=== PATIENT | male | born 1945 | race Caucasian/White ===

== ENCOUNTER 2018-03-31 10:00 | Outpatient (RCR) | payer MEDICARE, BC, SELFPAY ==
--- NOTE | 2018-03-31 10:00 | PTTR_ITS ---
DATE: SUBJECTIVE: Juan states his shoulder is feeling about the same. He admits he has not been doing his exercises at home. Manual therapy: ([id number]). Patient demonstrates active shoulder flexion to 160 degrees, passively he tolerates 165 with impingement symptoms. Functional IR allows thumb to L5 passively he has full motion. ER actively is approximately 45 degrees, passively he tolerates 60 degrees with end range pain. He received cross friction massage to the greater tuberosity and posterior capsule as well as scapular framing techniques and deep tissue mobilization throughout the infraspinatus. This is followed by grade 3 inferior and AP GH joint mobilizations and sustained stretching through all planes where he eventually tolerates full PROM. Therapeutic procedures ([id number]). * X HEP review: * x Provided skilled manual cues to facilitate proper muscle recruitment and/ or movement pattern: Patient instructed in 4 way theraband resisted shoulder exercises and provided with red band for home completion. He was encouraged to improve compliance and hang the band in a room that he frequents so he can be reminded to complete these throughout the course of a day. He is provided with hand outs for home instruction. Direct treatment time: 30 mins Total treatment time: 30 mins SS/dl
--- NOTE | 2018-04-12 13:48 | NT_ITS ---
Juan did not show up for today's scheduled appointment. SS/gc
== END 2018-04-16 23:59 | disposition home or self-care (01) ==
LOC: PT 10:00
PROVIDERS: PCP Emergency Medicine; Referring Provider Emergency Medicine; Visit Provider Emergency Medicine
DX: M65.812 Other synovitis and tenosynovitis, left shoulder (principal); R42 Dizziness and giddiness
CPT/HCPCS: 97110; 97140

== ENCOUNTER 2019-02-15 19:25 | Outpatient (REF) | payer MEDICARE, BC, SELFPAY ==
[2019-02-15 19:52] LABS: Bilirubin Negative (Negative); Blood Moderate (Negative); Clarity Sl Cloudy (Clear); Glucose 250 mg/dL (Negative); Ketones Negative (Negative); Leukocyte Esterase Moderate (Negative); Nitrite Positive (Negative); Specific Gravity 1.025 (1.005-1.025); Urobilinogen 0.2 EU/dL (Up TO 0.2); pH 5.5 (5-8)
[2019-02-15 20:05] LABS: Bacteria Many HPF (Negative); C & S Indicated? Yes; Casts Negative LPF (Negative); Crystals Negative HPF (Negative); Epithelial Cells Negative HPF (Negative); Mucus Negative (Negative); RBC >50 (0-2); WBC >50 HPF (0-5)
== END 2019-02-15 19:45 ==
LOC: LBN 19:25
PROVIDERS: PCP Emergency Medicine; Visit Provider Family Medicine
DX: N39.0 Urinary tract infection, site not specified (principal)
CPT/HCPCS: 87077; 81003; 81015; 87086; 87186

== ENCOUNTER 2019-02-28 20:05 | Outpatient (REF) | payer MEDICARE, BC, SELFPAY | END 2019-02-28 20:25 | LOC: LBN 20:05 | PROVIDERS: PCP Emergency Medicine; Visit Provider Family Medicine | DX: N39.0 Urinary tract infection, site not specified (principal) | CPT/HCPCS: 87086 ==

== ENCOUNTER 2019-03-16 11:34 | Outpatient (CLI) | payer MEDICARE, BC, SELFPAY ==
[2019-03-17 10:32] LABS: PSA, Screening 1.9 ng/ml (0-6.5)
== END 2019-03-16 11:54 ==
PROVIDERS: PCP Emergency Medicine; Visit Provider Emergency Medicine
DX: N13.8 Other obstructive and reflux uropathy (principal); N40.1 Benign prostatic hyperplasia with lower urinary tract symptoms; Z12.5 Encounter for screening for malignant neoplasm of prostate
CPT/HCPCS: 36415; 84153

== ENCOUNTER → 2019-04-26 14:44 | Outpatient (CLI) | payer MEDICARE, BC, SELFPAY ==
--- NOTE | 2019-04-26 12:15 | DI.RAD_ITS ---
SYMPTOM/DIAGNOSIS: RIGHT WRIST PAIN M25.539 RIGHT WRIST: 04/26 Three views were obtained. Bony alignment appears within normal limits. There is a marginal osteophyte of the ulna at the radial ulnar joint. No other bony abnormality seen.
[2019-04-26 13:20] LABS: Uric Acid 1.2 mg/dL (3.5-7.2)
[2019-04-26 13:43] LABS: ESR 26 mm/hr (1-20)
[2019-04-27 11:06] LABS: Lyme Ab w Rflx to Lyme Confirm Negative
== END ==
PROVIDERS: PCP Emergency Medicine; Visit Provider Emergency Medicine
DX: M25.531 Pain in right wrist (principal); M25.731 Osteophyte, right wrist
CPT/HCPCS: 36415; 85652; 73110; 84550; 86618

== ENCOUNTER → 2019-05-03 09:40 | Outpatient (BNVA) | payer MEDICARE, BC, SELFPAY | PROVIDERS: PCP Emergency Medicine; Referring Provider Emergency Medicine; Visit Provider Orthopaedic Surgery | DX: M25.531 Pain in right wrist (principal); E11.9 Type 2 diabetes mellitus without complications | CPT/HCPCS: 29075; 99201; 99213; Q4010 ==

== ENCOUNTER 2019-05-16 13:53 | Outpatient (REF) | payer MEDICARE, BC, SELFPAY ==
[2019-05-16 16:27] LABS: Abs Immature Grans 0.01 k/cumm (0.0-0.09); Absolute Basophil Count 0.01 k/cumm (0.0-0.2); Absolute Eosinophil Count 0.17 k/cumm (0.0-0.7); Absolute Lymphocyte Count 0.88 k/cumm (1.2-3.4); Absolute Monocyte Count 0.53 k/cumm (0.11-0.7); Absolute Neutrophil Count 3.77 k/cumm (1.2-6.7); Basophils % 0.2; Eosinophils % 3.2; HCT 35.3 % (40.0-50.0); HGB 11.7 g/dL (13.5-17.5); Immature Grans % 0.2; Lymphocytes % 16.4; Mean Corp. HGB Concentration 33.1 g/dL (32.0-36.0); Mean Corpuscular Hemoglobin 32.3 pg (27.0-33.0); Mean Corpuscular Volume 97.5 fL (80-95); Mean Platelet Volume 9.8 fL (8.0-11.0); Monocytes % 9.9; Neutrophils % 70.1; Platelet Count 427 x1000/uL (130-400); RBC 3.62 m/cumm (4.50-6.00); RBC Distribution Width 12.1 % (11.8-14.1); White Blood Cell Count 5.37 k/cumm (4.4-10.8)
[2019-05-16 17:10] LABS: ALT 40 U/L (16-63); AST 16 U/L (15-37); Alkaline Phosphatase 89 U/L (46-116); Anion Gap 11.4 mmol/L (3-11); BUN 22 mg/dL (7-18); Bilirubin, Total 0.2 mg/dL (0.2-1.0); C-Reactive Protein 4.43 mg/dL (0.0-0.3); CO2 25.6 mmol/L (21.0-32.0); CREATININE 1.36 mg/dL (0.70-1.30); Calcium 8.7 mg/dL (8.5-10.1); Chloride 100 mmol/L (98-107); Estimated GFR 51.37 (mL/min/1.73m2); Glucose 245 mg/dL (70-100); Potassium 4.4 mmol/L (3.5-5.1); Sodium 137 mmol/L (136-145); Total Protein 7.2 g/dL (6.4-8.2)
== END 2019-05-16 14:13 ==
LOC: LBN 13:53
PROVIDERS: PCP Emergency Medicine; Visit Provider Internal Medicine Infectious Disease
DX: E11.9 Type 2 diabetes mellitus without complications (principal); R78.81 Bacteremia; M06.041 Rheumatoid arthritis without rheumatoid factor, right hand
CPT/HCPCS: 80053; 85025; 86140

== ENCOUNTER 2019-05-23 14:33 | Outpatient (REF) | payer MEDICARE, BC, SELFPAY ==
[2019-05-23 14:29] LABS: Absolute Basophil Count 0.02 k/cumm (0.0-0.2); Absolute Eosinophil Count 0.15 k/cumm (0.0-0.7); Absolute Lymphocyte Count 0.82 k/cumm (1.2-3.4); Basophils % 0.4; Eosinophils % 2.9; HCT 33.2 % (40.0-50.0); HGB 11.2 g/dL (13.5-17.5); Lymphocytes % 16.1; Mean Corp. HGB Concentration 33.7 g/dL (32.0-36.0); Mean Corpuscular Hemoglobin 32.4 pg (27.0-33.0); Mean Platelet Volume 9.4 fL (8.0-11.0); Monocytes % 11.8; Neutrophils % 68.8; Platelet Count 285 x1000/uL (130-400); RBC 3.46 m/cumm (4.50-6.00); White Blood Cell Count 5.09 k/cumm (4.4-10.8)
[2019-05-23 15:07] LABS: ALT 25 U/L (16-63); AST 15 U/L (15-37); Albumin 3.1 g/dL (3.4-5.0); Alkaline Phosphatase 75 U/L (46-116); Anion Gap 10.2 mmol/L (3-11); BUN 15 mg/dL (7-18); Bilirubin, Total 0.3 mg/dL (0.2-1.0); C-Reactive Protein 2.05 mg/dL (0.0-0.3); CO2 26.8 mmol/L (21.0-32.0); CREATININE 1.26 mg/dL (0.70-1.30); Calcium 8.7 mg/dL (8.5-10.1); Chloride 101 mmol/L (98-107); Glucose 275 mg/dL (70-100); Potassium 4.4 mmol/L (3.5-5.1); Sodium 138 mmol/L (136-145); Total Protein 6.9 g/dL (6.4-8.2)
== END 2019-05-23 14:53 ==
LOC: LBN 14:33
PROVIDERS: PCP Emergency Medicine; Visit Provider Internal Medicine Infectious Disease
DX: R78.81 Bacteremia (principal); M00.041 Staphylococcal arthritis, right hand; E11.9 Type 2 diabetes mellitus without complications
CPT/HCPCS: 80053; 85025; 86140

== ENCOUNTER 2019-05-30 15:29 | Outpatient (REF) | payer MEDICARE, BC, SELFPAY ==
[2019-05-30 16:44] LABS: ALT 18 U/L (16-63); AST 13 U/L (15-37); Albumin 3.3 g/dL (3.4-5.0); Alkaline Phosphatase 68 U/L (46-116); BUN 17 mg/dL (7-18); Bilirubin, Total 0.3 mg/dL (0.2-1.0); C-Reactive Protein 0.65 mg/dL (0.0-0.3); CREATININE 1.19 mg/dL (0.70-1.30); Calcium 8.1 mg/dL (8.5-10.1); Chloride 103 mmol/L (98-107); Estimated GFR 59.92 (mL/min/1.73m2); Glucose 240 mg/dL (70-100); Potassium 4.2 mmol/L (3.5-5.1); Sodium 138 mmol/L (136-145); Total Protein 6.8 g/dL (6.4-8.2)
[2019-05-30 16:45] LABS: Abs Immature Grans 0.01 k/cumm (0.0-0.09); Absolute Basophil Count 0.01 k/cumm (0.0-0.2); Absolute Eosinophil Count 0.16 k/cumm (0.0-0.7); Absolute Lymphocyte Count 0.73 k/cumm (1.2-3.4); Absolute Monocyte Count 0.57 k/cumm (0.11-0.7); Absolute Neutrophil Count 1.97 k/cumm (1.2-6.7); Basophils % 0.3; Eosinophils % 4.6; HCT 34.4 % (40.0-50.0); HGB 11.5 g/dL (13.5-17.5); Immature Grans % 0.3; Lymphocytes % 21.2; Mean Corp. HGB Concentration 33.4 g/dL (32.0-36.0); Mean Corpuscular Hemoglobin 32.2 pg (27.0-33.0); Mean Corpuscular Volume 96.4 fL (80-95); Mean Platelet Volume 9.8 fL (8.0-11.0); Monocytes % 16.5; Neutrophils % 57.1; Platelet Count 205 x1000/uL (130-400); RBC 3.57 m/cumm (4.50-6.00); RBC Distribution Width 12.6 % (11.8-14.1); White Blood Cell Count 3.45 k/cumm (4.4-10.8)
== END 2019-05-30 15:49 ==
LOC: LBN 15:29
PROVIDERS: PCP Emergency Medicine; Visit Provider Emergency Medicine
DX: M00.041 Staphylococcal arthritis, right hand (principal); R78.81 Bacteremia; Z45.2 Encounter for adjustment and management of vascular access device
CPT/HCPCS: 80053; 85025; 86140

== ENCOUNTER 2020-03-07 16:43 | Inpatient (IN) | payer MEDICARE, BC, SELFPAY ==
[2020-03-07] VITALS (47 sets, daily range): BP systolic 108–159; BP diastolic 52–76; PULSE 43–66; RESP 10–18; TEMP 36.6–36.7; O2SAT 94–98
--- NOTE | 2020-03-07 16:45 | RT.EKG_ITS ---
APPROVED REPORT Exam: Resting ECG Patient Location: E HR:61 bpm ECG Measurements Heart Rate 61 AXIS WA 261 P -5 QRSd 88 QRS 48 QT 419 T 15 QTc 422 <Conclusion> Sinus rhythm...normal P axis, V-rate 61, no st elevation. 1st deg av block
--- NOTE | 2020-03-07 16:45 | DI.CT_ITS ---
EXAM: CT HEAD - STROKE PROTOCOL CLINICAL HISTORY: expressive aphasia. TECHNIQUE: Imaging Protocol: Axial computed tomography images with coronal and sagittal reformatted images were created and reviewed COMPARISON: CT HEAD NECK FACIAL WO from 11/07/2017 FINDINGS: Ventricles and Extra axial spaces: Normal in size and morphology for the patient's age. Hemorrhage: None. Cerebral parenchyma: There is an area of decreased attenuation involving the left temporal lobe not p resent on the prior examination. There are areas of decreased attenuation in the white matter most c onsistent with microvascular ischemic disease. Midline shift: None. Brainstem/Cerebellum: Normal. Calvarium: Normal. Visualized Paranasal sinuses/Mastoids: There is a small mucous retention cyst or polyp in the left ma xillary sinus. The remaining visualized paranasal sinuses are clear. The mastoid air cells are well pneumatized. Soft Tissues: Unremarkable. IMPRESSION: 1. Area of decreased attenuation in the left temporal lobe. This may represent volume averaging thro ugh an adjacent sign. An acute infarct cannot be excluded. If there is continued concern, an MRI sh ould be considered for further evaluation. 2. No other acute intracranial process. RADIATION DOSE DELIVERED: Total DLP DATA REPOSITORY: All CT scans at this facility are submitted to the National Radiology Data Registry (NRDR) Dose Index Registry (DIR) with the [employer] (ACR). RADIATION OPTIMIZATION: All CT scans at this facility use at least one of these dose optimization te chniques: automated exposure control; mA and/or kV adjustment per patient size (includes targeted exa ms where dose is matched to clinical indication); or iterative reconstruction.
--- NOTE | 2020-03-07 16:57 | ED.GENADUL_ITS ---
Discharge Plan Disposition Patient Disposition: [facility] INPATIENT Condition: Stable Discharge Details Chief Complaint: CVA/TIA Clinical Impression: Expressive aphasia Primary Care Provider: Christopher Suarez ED Provider: Robles Zapien Home Meds and New Rx's Prescriptions: No Action glipizide 2.5 mg tablet extended release 24hr 2.5 mg PO DAILY Qty: 90 RF: 3 (DME) OneTouch Verio test strips Strip See Rx Instructions .ROUTE .MEDSUPPLY Qty: 100 RF: 6 losartan [Cozaar] 50 mg tablet 50 mg PO DAILY Qty: 90 RF: 3 rosuvastatin [Crestor] 10 mg tablet 20 mg PO DAILY Qty: 30 RF: 12 (DME) OneTouch Ultra Blue Test Strip Strip See Rx Instructions .ROUTE .MEDSUPPLY Qty: 100 RF: 4 prednisone 20 mg tablet 60 mg PO DAILY Qty: 9 RF: 0 epinephrine 0.3 mg/0.3 mL auto-injector 0.3 ml SC ONCE PRN (Reason: anaphylaxis) Qty: 2 RF: 0 aspirin [Aspir-81] 81 MG tablet,delayed release (DR/EC) 81 mg PO DAILY Qty: 100 RF: 3 nitroglycerin 0.4 MG tablet, sublingual 0.3 mg Sublingual PRN RF: 0 metoprolol succinate 25 MG tablet extended release 24 hr 25 mg PO DAILY RF: 0 ONETOUCH ULTRA TEST STRIPS 1 EACH strip 1 ea Miscellaneous DAILY Qty: 90 RF: 3 (DME) lancets [OneTouch UltraSoft Lancets] misc 1 ea Miscellaneous DAILY Qty: 90 RF: 3 magnesium chloride [Mag 64] 64 mg tablet,delayed release (DR/EC) 64 mg PO DAILY PRNRF: 0 Medical Decision Making 75-year-old male with a history of diabetes, coronary artery disease, presents from home with his who states that at 1030 this morning patient began to develop intermittent expressive a aphasia. He felt that this was likely due to some mild hypoglycemia with a glucose of 80 at home this is happened in the past. He was able to sleep and then awoke and had persistent expressive aphasia, the patient's spoke with their family doctor and he recommended evaluation in the emergency department. Patient arrives in no significant distress. His blood pressure is 152/61 initially, repeated 131/60. Pulse 63, afebrile 36.6 with 96% sat on room air. His exam does not show focal motor deficits but he does have expressive aphasia. He is able to follow two-step command. Referred for stat noncontrast CT scan of the head with no acute intracranial findings. See formal report. Chest x-ray without evidence of acute cardiopulmonary process. Laboratories with unremarkable CBC chemistries with BUN 29, creatinine 1.4 and indeterminate troponin I of 0.17. The troponin I was repeated at 0.16. Do not feel the patient is a primary cardiac process. May be effects of the neuro- cardiac axis. Case discussed with Dr. Garcia and patient to be admitted. Lab Data Lab results reviewed: Yes I reviewed the patient's lab results. Labs: Laboratory Results - last 24 hr 03/07/20 03/07/20 16:56 16:56 WBC 7.98 RBC 4.08 L Hgb 13.7 Hct 39.0 L MCV 95.6 H MCH 33.6 H MCHC 35.1 RDW 12.7 Plt Count 235 MPV 9.4 Immature Gran % 0.4 Neutrophils % 59.3 Lymphocytes % 24.4 Monocytes % 14.2 Eosinophils % 1.4 Basophils % 0.3 Absolute Neutrophils 4.74 Absolute Lymphocytes 1.95 Absolute Monocytes 1.13 H Absolute Eosinophils 0.11 Absolute Basophils 0.02 Sodium 140 Potassium 3.4 L Chloride 106 Carbon Dioxide 24.2 Anion Gap 9.8 BUN 29 H Creatinine 1.41 H Estimated GFR/1.73 m2 49.13 Glucose 123 H Calcium 8.5 Magnesium 2.1 Total Bilirubin 0.3 AST 13 L ALT 20 Alkaline Phosphatase 45 L Troponin I 0.17 H* Total Protein 7.0 Albumin 3.5 HPI General Mode of arrival: ambulatory . Date/Time Provider Initiated Documentation: 03/07/20 16:43 . Limitations to Documentation: no limitations . Information obtained by: patient . History of Present Illness 75 year old M presents to the emergency department with the chief complaint of Expressive aphasia that began at 10:30 AM, described as moderate, and is localized to the head and mouth. Patient started experiencing this hour(s) and it has been intermittent. No relieving factors improve symptom(s), No exacerbating factors reported . Patient notes denies shortness of breath, syncope and weakness. Patient did receive the following treatments prior to arrival, none Related Data Home Medications Medication Instructions Recorded Confirmed aspirin [Aspir-81] 81 mg PO DAILY #100 tab-cap 01/20/17 03/07/20 metoprolol succinate 25 mg PO DAILY tab-cap 02/03/17 03/07/20 nitroglycerin 0.3 mg SUBLINGUAL PRN 02/03/17 03/07/20 magnesium chloride 64 mg 64 mg PO DAILY PRN 02/15/19 03/07/20 (magnesium chloride) tablet,delayed release lancets #90 ea 02/16/19 03/07/20 blood sugar diagnostic #100 each 05/20/19 03/07/20 losartan 50 mg tablet 50 mg PO DAILY #90 tab-cap 05/20/19 03/07/20 rosuvastatin 10 mg tablet 20 mg PO DAILY #30 tab-cap 05/20/19 03/07/20 blood sugar diagnostic #100 each 05/24/19 03/07/20 glipizide 2.5 mg tablet, extended 2.5 mg PO DAILY #90 tab 12/20/19 03/07/20 release 24 hr epinephrine 0.3 mg/0.3 mL 0.3 ml SC ONCE PRN #2 each 03/05/20 03/07/20 injection, auto-injector prednisone 20 mg tablet 60 mg PO DAILY #9 tab 03/05/20 03/07/20 Previous Rx's Medication Instructions Recorded lancets #90 ea 02/16/19 blood sugar diagnostic #100 each 05/20/19 losartan 50 mg tablet 50 mg PO DAILY #90 tab-cap 05/20/19 rosuvastatin 10 mg tablet 20 mg PO DAILY #30 tab-cap 05/20/19 blood sugar diagnostic #100 each 05/24/19 glipizide 2.5 mg tablet, extended 2.5 mg PO DAILY #90 tab 12/20/19 release 24 hr epinephrine 0.3 mg/0.3 mL 0.3 ml SC ONCE PRN #2 each 03/05/20 injection, auto-injector prednisone 20 mg tablet 60 mg PO DAILY #9 tab 03/05/20 Allergies Allergy/AdvReac Type Severity Reaction Status Date / Time atorvastatin [From Lipitor] AdvReac Severe sweating, Verified 03/07/20 16:55 sick to stomach metformin AdvReac Mild DIARRHEA Verified 03/07/20 16:55 tape AdvReac Mild Skin Rash Uncoded 03/07/20 16:55 General Stated Complaint: CVA/TIA DIANNE: 2 Review of Systems Narrative: Recently placed on prednisone for insect bite. No recent illness. No known sick contacts or recent travel history. 8 systems reviewed and otherwise negative. 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 [facility] [place]. 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 Social History Smoking/Tobacco Use Status: Former Tobacco Use Alcohol Intake: current Alcohol Intake frequency: a few times a week Alcohol type: beer Drug use: Never Substance use type: does not use Caregiver/Support person: Yes Household members: spouse Communication Needs: None Do you need help understanding health information?: Never Pets and animals: Yes Pets and animals: cat(s), dog(s) and horse(s) Sexually active: Yes Do you think of yourself as: straight/heterosexual Current gender identity: male What is your relationship status?: How often do you talk on the phone with friends or family?: once per week How often do you get together with friends or relatives?: once per week How often do you attend congregational or cheondoism services?: 1-3 times per year Do you belong to any clubs or organized social groups?: no Panel score (0-1 are the most socially isolated patients): 1 What type of physical activity do you participate in: none Tiffanie/Holiness: No preference Special tiffanie needs: No Seatbelt use: always Drive intox or ride w/intox security patrol driver: No Do you feel safe at home: Yes Do you feel safe in your relationship?: Yes Exam Narrative Exam Narrative: GEN: awake, alert. Pleasant, well groomed, interactive. HEAD: Normocephalic, atraumatic ENT: Mucous membranes moist, oropharynx unremarkable, External ear exam unremarkable EYES: PERRL, EOMI, mild left supraorbital edema NECK: Full ROM, no KYLAH, no menigismus CHEST/RESP: Nontender, clear to auscultation bilateral, no wheeze/rhonchi/rales CARDIOVASCULAR: RRR, no murmur, rub wilson. 2+ Rad pulse bilateral ABDOMEN: Soft, nontender, no mass. +Bowel sounds EXT: Full ROM, no edema, no rash Neuro: Grossly normal neurologic exam, conversant, interactive. Cranial nerves II through XII intact. No facial droop. +Expressive aphasia. Follows two-step command. No motor weakness. Psych: Course Vital Signs Vital signs: Vital Signs Temperature 36.6 C 03/07/20 16:47 Pulse 63 03/07/20 16:47 Respiratory Rate 16 03/07/20 16:47 Blood Pressure 152/61 H 03/07/20 16:47 Pulse Oximetry 96 03/07/20 16:47 Temperature 36.6 C 03/07/20 16:47 Temperature Source Tympanic 03/07/20 16:47 Pulse 63 03/07/20 16:47 Respiratory Rate 16 03/07/20 16:47 Respiratory Effort Non-Labored 03/07/20 16:53 Blood Pressure 152/61 H 03/07/20 16:47 Blood Pressure Position Sitting 03/07/20 16:47 Pulse Oximetry 96 03/07/20 16:47 Oxygen Delivery Method Room Air 03/07/20 16:47 Oxygen Flow Rate 0 03/07/20 16:47
[2020-03-07] MEDS: Normal Saline 1,000 ML 125 ML IV (17:00)
[2020-03-07 17:05] LABS: Abs Immature Grans 0.03 k/cumm (0.0-0.09); Absolute Basophil Count 0.02 k/cumm (0.0-0.2); Absolute Eosinophil Count 0.11 k/cumm (0.0-0.7); Absolute Lymphocyte Count 1.95 k/cumm (1.2-3.4); Absolute Monocyte Count 1.13 k/cumm (0.11-0.7); Absolute Neutrophil Count 4.74 k/cumm (1.2-6.7); Basophils % 0.3; Eosinophils % 1.4; HGB 13.7 g/dL (13.5-17.5); Immature Grans % 0.4 %; Lymphocytes % 24.4; Mean Corp. HGB Concentration 35.1 g/dL (32.0-36.0); Mean Corpuscular Hemoglobin 33.6 pg (27.0-33.0); Mean Corpuscular Volume 95.6 fL (80-95); Mean Platelet Volume 9.4 fL (8.0-11.0); Monocytes % 14.2; Neutrophils % 59.3; Platelet Count 235 x1000/uL (130-400); RBC 4.08 m/cumm (4.50-6.00); RBC Distribution Width 12.7 % (11.8-14.1); White Blood Cell Count 7.98 k/cumm (4.4-10.8)
--- NOTE | 2020-03-07 17:10 | DI.RAD_ITS ---
EXAM: XR CHEST 2V PA LATERAL CLINICAL HISTORY: expressive aphasia TECHNIQUE: 2D digital imaging was performed. COMPARISON: No exams were available for comparison FINDINGS: MEDIASTINUM: Normal. HEART: Normal. PULMONARY VASCULATURE: Normal. LUNGS: Clear. PLEURAL SPACE: No pleural effusion or pneumothorax. BONE:Normal. OTHER FINDINGS:Normal. IMPRESSION: No acute pulmonary findings. DATA REPOSITORY: RADIATION DOSE DELIVERED:
--- NOTE | 2020-03-07 17:17 | DI.VRAD_ITS ---
PROCEDURE INFORMATION: Exam: XR Chest, 2 Views Exam date and time: 03/07/2020 5:07 PM Age: 75 years old Clinical indication: Other: Expresive aphasia TECHNIQUE: Imaging protocol: XR of the chest Views: 2 views. COMPARISON: CR LEFT RIBS TO INCLUDE CXR 11/07/2017 2:10 PM FINDINGS: Lungs: Clear lungs. Pleural space: No pneumothorax. No sizeable effusion. Heart/Mediastinum: Cardiomediastinal silhouette is within normal limits. Bones/joints: No acute displaced fracture or dislocation. IMPRESSION: No acute cardiopulmonary process. Dictated and Authenticated by: Demarco Ferraro MD. Ordering:SHANTE Arboleda MD
--- NOTE | 2020-03-07 17:17 | DI.VRAD_ITS ---
PROCEDURE INFORMATION: Exam: CT Head Without Contrast Exam date and time: 03/07/2020 5:02 PM Age: 75 years old Clinical indication: Speech disturbance; Aphasia TECHNIQUE: Imaging protocol: Computed tomography of the head without contrast. Other technique: STROKE PROTOCOL was implemented. COMPARISON: CT HEAD WITHOUT CONTRAST 10/10/2013 5:14 PM FINDINGS: Brain: There is a focal area of low attenuation within the left temporal lobe on image 19 series 2 favored to represent volume averaging of adjacent sulci. Mild cerebral volume loss Ventricles: Ventricles and sulci are otherwise symmetric in appearance. Bones/joints: Unremarkable. Sinuses: Small mucous retention cyst left maxillary sinus. Mastoid air cells: Unremarkable. Soft tissues: Unremarkable. IMPRESSION: 1. No definite acute intracranial process. 2. Focal area of low attenuation within the left temporal lobe favored to represent volume averaging of adjacent sulci. MRI could be obtained to exclude acute infarct however. ASSESSMENT: ASPECTS ([place] Stroke Program Early CT Score) is 10. Dictated and Authenticated by: Demarco Ferraro MD. Ordering:SHANTE Arboleda MD
[2020-03-07 17:20] LABS: ALT 20 U/L (16-63); AST 13 U/L (15-37); Albumin 3.5 g/dL (3.4-5.0); Alkaline Phosphatase 45 U/L (46-116); Anion Gap 9.8 mmol/L (3-11); BUN 29 mg/dL (7-18); Bilirubin, Total 0.3 mg/dL (0.2-1.0); CO2 24.2 mmol/L (21.0-32.0); CREATININE 1.41 mg/dL (0.70-1.30); Calcium 8.5 mg/dL (8.5-10.1); Chloride 106 mmol/L (98-107); Estimated GFR 49.13 (mL/min/1.73m2); Glucose 123 mg/dL (74-106); Magnesium 2.1 mg/dL (1.8-2.4); Potassium 3.4 mmol/L (3.5-5.1); Sodium 140 mmol/L (136-145)
[2020-03-07 17:21] LABS: Troponin I 0.17 ng/mL (<0.06)
[2020-03-07] MEDS: Aspirin 325 MG TAB PO (17:46)
[2020-03-07 19:15] LABS: Troponin I 0.16 ng/mL (<0.06)
--- NOTE | 2020-03-07 19:30 | HPE_ITS ---
Date of service: 03/07/20 Time of Service: 19:30 Assessment and Plan Assessment and plan (1) Stroke: Status: Chronic Assessment and plan: Stroke, pure anterior aphasia, fairly mild, perhaps improving. Will continue ASA (note has has been noncompliant), statin. Will check MRI in AM. Will monitor Tely and check carotid U/S. Troponin: doubtful significance. Will check third in AM HTN: will allow mild permissive DM usual meds Pulse steroids(for bee sting over eye): three day course, has essentially completed. History of Present Illness History of Present Illness Chief Complaint: aphasia Narrative: 75 male wikth DM, HTN, HLD, CAD -- comes in with one day of difficulty word finding; time onset nine hr ago. NO HAQUE or lateralizing symptoms. In ER w/u of note for neg h ead CT. Given ASA 325. thinks he might be getting slightly better (as example states that he misnamed a pen earlier in day, but during my exam gets it correct) In ER tely has shown all sinus rhythm Note incidental troponin 0.17; #2 0.16. No CP, and EKG WNL except 1' AVB Review of Systems All systems reviewed & are unremarkable except as noted in HPI and below PFSH Medical History Carpal tunnel syndrome (Acute) Coronary artery disease of [place] artery of [place] heart with stable angina pectoris (Acute 03/17/17) pos. stress [facility] [place]. Treating medically. 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 Social History Smoking/Tobacco Use Status: Former Tobacco Use Alcohol Intake: current Alcohol Intake frequency: a few times a week Alcohol type: beer Drug use: Never Substance use type: does not use Caregiver/Support person: Yes Household members: spouse Communication Needs: None Do you need help understanding health information?: Never Pets and animals: Yes Pets and animals: cat(s), dog(s) and horse(s) Sexually active: Yes Do you think of yourself as: straight/heterosexual Current gender identity: male What is your relationship status?: How often do you talk on the phone with friends or family?: once per week How often do you get together with friends or relatives?: once per week How often do you attend confucianism or pentecostalism services?: 1-3 times per year Do you belong to any clubs or organized social groups?: no Panel score (0-1 are the most socially isolated patients): 1 What type of physical activity do you participate in: none Tiffanie/Mu-Ism: No preference Special tiffanie needs: No Seatbelt use: always Drive intox or ride w/intox driver service technician: No Do you feel safe at home: Yes Do you feel safe in your relationship?: Yes Meds Home Medications and Allergies Home Medications Medication Instructions Recorded Confirmed Type aspirin [Aspir-81] 81 mg PO DAILY #100 tab-cap 01/20/17 03/07/20 History metoprolol succinate 25 mg PO DAILY tab-cap 02/03/17 03/07/20 History nitroglycerin 0.3 mg SUBLINGUAL PRN 02/03/17 03/07/20 History Onetouch Ultra Test Strips 1 ea MISCELLANEOUS DAILY #90 strip 01/05/18 03/07/20 Clinic magnesium chloride 64 mg 64 mg PO DAILY PRN 02/15/19 03/07/20 History (magnesium chloride) tablet,delayed release lancets #90 ea 02/16/19 03/07/20 Rx blood sugar diagnostic #100 each 05/20/19 03/07/20 Rx losartan 50 mg tablet 50 mg PO DAILY #90 tab-cap 05/20/19 03/07/20 Rx rosuvastatin 10 mg tablet 20 mg PO DAILY #30 tab-cap 05/20/19 03/07/20 Rx blood sugar diagnostic #100 each 05/24/19 03/07/20 Rx glipizide 2.5 mg tablet, extended 2.5 mg PO DAILY #90 tab 12/20/19 03/07/20 Rx release 24 hr epinephrine 0.3 mg/0.3 mL 0.3 ml SC ONCE PRN #2 each 03/05/20 03/07/20 Rx injection, auto-injector prednisone 20 mg tablet 60 mg PO DAILY #9 tab 03/05/20 03/07/20 Rx Allergies Allergy/AdvReac Type Severity Reaction Status Date / Time atorvastatin [From Lipitor] AdvReac Severe sweating, Verified 03/07/20 16:55 sick to stomach metformin AdvReac Mild DIARRHEA Verified 03/07/20 16:55 tape AdvReac Mild Skin Rash Uncoded 03/07/20 16:55 Exam Narrative Exam Narrative: 149/59, 52, 376./6, 14, 97%b RA. HEENT mild left periorbital puffiness; neck supple, w/o bruit; lungs clear; heart RRR w/o MRG; abdomen soft NT; extremities w/o edema, pulse 2+/=; neuro Ox3, language shows somewhat delayed word production with occ errors in word choice and naming; CN intact, motor 5/5, toes downgoing Results Labs Result diagrams: 03/07/20 16:56 03/07/20 16:56 Labs: Laboratory Results - last 24 hr 03/07/20 03/07/20 03/07/20 16:56 16:56 18:45 WBC 7.98 RBC 4.08 L Hgb 13.7 Hct 39.0 L MCV 95.6 H MCH 33.6 H MCHC 35.1 RDW 12.7 Plt Count 235 MPV 9.4 Immature Gran % 0.4 Neutrophils % 59.3 Lymphocytes % 24.4 Monocytes % 14.2 Eosinophils % 1.4 Basophils % 0.3 Absolute Neutrophils 4.74 Absolute Lymphocytes 1.95 Absolute Monocytes 1.13 H Absolute Eosinophils 0.11 Absolute Basophils 0.02 Sodium 140 Potassium 3.4 L Chloride 106 Carbon Dioxide 24.2 Anion Gap 9.8 BUN 29 H Creatinine 1.41 H Estimated GFR/1.73 m2 49.13 Glucose 123 H Calcium 8.5 Magnesium 2.1 Total Bilirubin 0.3 AST 13 L ALT 20 Alkaline Phosphatase 45 L Troponin I 0.17 H* 0.16 H* Total Protein 7.0 Albumin 3.5 Last Vital Signs Temp 36.6 C 03/07/20 16:47 Pulse 53 L 03/07/20 19:16 Resp 14 03/07/20 19:20 BP 149/59 H 03/07/20 19:16 Pulse Ox 97 03/07/20 19:20 COVID-19 Screening Have you,or household,traveled outside [place] in last 14 days?: No Had IN PERSON contact w/suspected or confirmed C-19 person: No
[2020-03-07] MEDS: ROSUVASTATIN 20 MG TAB (22:37)
[2020-03-07] MEDS: Rosuvastatin 10 MG TAB 20 MG PO (22:41)
[2020-03-08] VITALS (27 sets, daily range): BP systolic 93–173; BP diastolic 36–90; PULSE 42–62; RESP 11–21; TEMP 36.6–37.1; O2SAT 94–97
--- NOTE | 2020-03-08 | RT.EKG_ITS ---
APPROVED REPORT Exam: Resting ECG Patient Location: I HR:52 bpm ECG Measurements Heart Rate 52 AXIS AR 273 P 37 QRSd 84 QRS 50 QT 442 T 31 QTc 410 <Conclusion> Sinus bradycardia...rate< 60 Prolonged AR interval...AR >220, V-rate 50- 90
--- NOTE | 2020-03-08 | DI.MRI_ITS ---
EXAM: MR BRAIN WO/W CLINICAL HISTORY: global aphasia, h/o brain mets TECHNIQUE: Multiplanar multisequence MRI of the brain was performed. CONTRAST MATERIAL: IV Contrast: 15 ML of Dotarem contrast administered. COMPARISON: CT CT HEAD - STROKE PROTOCOL from 03/07/2020 FINDINGS: VENTRICLES AND EXTRA AXIAL SPACES: Normal in size and morphology for the patient's age. HEMORRHAGE: None. CEREBRAL PARENCHYMA: There are areas of restricted diffusion in the left temporal lobe and left parie shashi lobe corresponding to the left middle cerebral artery territory. No space-occupying lesion ident ified. Scattered foci of T2 hyperintensity are seen in the white matter consistent with small vessel ischemic disease. MIDLINE SHIFT: None. BRAINSTEM/CEREBELLUM: Normal. CALVARIUM: Normal. ENHANCEMENT: No suspicious enhancement identified. VISUALIZED PARANASAL SINUSES/MASTOIDS: Mild mucosal thickening in the maxillary sinuses bilaterally. Otherwise visualized paranasal sinuses are clear. [place]: Normal flow void. [place]: Unremarkable. OTHER FINDINGS: IMPRESSION: Findings consistent with an acute left MCA distribution infarct. DATA REPOSITORY:
--- NOTE | 2020-03-08 | DI.CT_ITS ---
EXAM: CT BRAIN NECK CTA CLINICAL HISTORY: L MCA territory CVA. TECHNIQUE: Imaging Protocol: Axial CT angiography was performed with multi-slice acquisition and mu lti-planar and/or 3D reconstructions. CONTRAST MATERIAL: Intravenous: Omnipaque 350 Contrast volume:85 mL COMPARISON: CT CT HEAD - STROKE PROTOCOL from 03/07/2020 MR MR ANGIO BRAIN WO from 03/08/2020 MR MR BRAIN WO/W from 03/08/2020 MR MR ANGIO BRAIN WO from 03/08/2020 FINDINGS: CT Head W/O: Ventricles and Extra axial spaces: Normal in size and morphology for the patient's age. Hemorrhage: None. Cerebral parenchyma: There are areas of decreased attenuation again seen in the left parietal and lef t temporal lobe consistent with the patient's now subacute left MCA distribution infarct Midline shift: None. Brainstem/Cerebellum: Normal. Calvarium: Normal. Visualized Paranasal sinuses/Mastoids: Clear. Soft Tissues: Unremarkable. CTA Brain W: Internal Carotid Arteries: Petrous: Normal. Cavernous: Atherosclerosis with moderate narrowing of the anterior genu component of the cavernous po rtion of the left internal carotid artery. Cerebral: Normal. Anterior Cerebral Arteries: Right: No aneurysm, occlusion or significant stenosis. Left: No aneurysm or occlusion. Moderate stenosis of the A1 segment. Middle Cerebral Arteries: Right: No aneurysm, occlusion or significant stenosis. Left: No aneurysm or occlusion. There is a moderate stenosis of a short segment of the proximal asp ect of a left posterior M2 branch. (Series 13, image 26). Posterior cerebral Arteries: Right: No aneurysm, occlusion or significant stenosis. Left: No aneurysm, occlusion or significant stenosis. Vertebral Arteries: Right: No aneurysm, occlusion or significant stenosis. Small caliber throughout. Left: No aneurysm, occlusion or significant stenosis. Basilar Artery: No aneurysm, occlusion or significant stenosis. CTA Neck W: Common Carotid: Right: No aneurysm, occlusion or significant stenosis. Mild atherosclerosis. Left: No aneurysm, occlusion or significant stenosis. Mild atherosclerosis. External Carotid: Right: No aneurysm, occlusion or significant stenosis. Mild atherosclerosis. Left: No aneurysm, occlusion or significant stenosis. Mild atherosclerosis. Internal Carotid: Right: No aneurysm, occlusion or dissection. Approximately 65 percent stenosis of the proximal inte rnal carotid artery. Proximal atherosclerosis. Left: No aneurysm, occlusion or dissection. Severe stenosis (greater than 90 percent) at the origin of the left internal carotid artery. Atherosclerosis. Vertebral Artery: Right: There is a long segment of severe stenosis of the extracranial right vertebral artery. The m id and superior right vertebral artery is small caliber. Left: Severe stenosis of the origin of the left vertebral artery. Atherosclerosis at its origin. Subclavian arteries: Moderate stenosis at the origin of the right subclavian artery. Atherosclerosis . Lung Apices: Normal. Bones: No acute abnormality. Soft Tissues: Normal. IMPRESSION: 1. Moderate stenoses again noted in the cavernous portion of the left internal carotid artery and a p osterior left M2 branch of the left MCA. 2. Findings again show a now subacute left MCA distribution infarct. 3. Severe stenosis (greater than 90 percent) at the origin of the left internal carotid artery. 4. Severe stenosis at the origins of both the left and right vertebral arteries. 5. Approximately 65 percent stenosis of the proximal right internal carotid artery. 6. Moderate stenosis of the origin of the right subclavian artery. 7. Please see the above discussion for complete details. RADIATION DOSE DELIVERED: Total DLP DATA REPOSITORY: All CT scans at this facility are submitted to the National Radiology Data Registry (NRDR) Dose Index Registry (DIR) with the [employer] (ACR). RADIATION OPTIMIZATION: All CT scans at this facility use at least one of these dose optimization te chniques: automated exposure control; mA and/or kV adjustment per patient size (includes targeted exa ms where dose is matched to clinical indication); or iterative reconstruction.
--- NOTE | 2020-03-08 | DI.US_ITS ---
APPROVED REPORT EXAM: Comprehensive 2D, Doppler, and color-flow Echocardiogram Patient Location: [facility] Product Safety Professional: Eve Ruth RDCS (AE) Indications: CVA, Elevated troponin Other Information Study Quality: Adequate Conclusion Left Ventricle : The left ventricle is normal size. The left ventricular systolic function is normal. The left ventricular ejection fraction is within the normal range. There is normal left ventricular wall thickness. There is normal LV segmental wall motion. The left ventricular diastolic function is normal. LVEF is 60%. Right Ventricle : The right ventricle is normal size. The right ventricular systolic function is norm al. The RVSP is 20.7 mmHg. Atria : Left atrium is mildly dilated. The right atrium size is normal. Aortic Valve : Aortic valve is thickened but has adequate excursion. Aortic valve is trileaflet. No h emodynamically significant valvular aortic stenosis. Mild to moderate aortic regurgitation. Mitral Valve : Mild mitral annular calcification. No evidence of mitral valve stenosis. Mild mitral r egurgitation. Great Vessels : The aortic root is normal in size. The ascending aorta is mildly dilated. Aortic arc h is not well visualized. IVC is normal in size and collapses >50% with inspiration. There is no prior stdy available for comparison. Wall motion Left Ventricle The left ventricle is normal size. The left ventricular systolic function is normal. The left ventric ular ejection fraction is within the normal range. There is normal left ventricular wall thickness. T here is normal LV segmental wall motion. The left ventricular diastolic function is normal. There is no ventricular septal defect visualized. LVEF is 60%. Right Ventricle The right ventricle is normal size. The right ventricular systolic function is normal. The RVSP is 20 .7 mmHg. Atria Left atrium is mildly dilated. The right atrium size is normal. The interatrial septum is intact with no evidence for an atrial septal defect. Aortic Valve Aortic valve is thickened but has adequate excursion. Aortic valve is trileaflet. No hemodynamically significant valvular aortic stenosis. Mild to moderate aortic regurgitation. Mitral Valve Mild mitral annular calcification. No evidence of mitral valve stenosis. Mild mitral regurgitation. Tricuspid Valve The tricuspid valve is normal in structure. There is no tricuspid valve stenosis. Trace to mild tricu spid regurgitation. Pulmonic Valve The pulmonary valve is normal in structure. There is no pulmonic valvular stenosis. Trace pulmonic re gurgitation. Great Vessels The aortic root is normal in size. The ascending aorta is mildly dilated. Aortic arch is not well vis ualized. IVC is normal in size and collapses >50% with inspiration. Pericardium There is no pericardial effusion. 2D Dimensions IVSD d PLAX 1.03 cm M: 0.6-1.2 LV Vol A2C d MOD 109.9 mL LVPW d PLAX 1.04 cm M: 0.6 - 1.2 LV Vol A4C d MOD 100.8 mL LVID d PLAX 4.52 cm M: 4.2 - 5.8 LA vol/ BSA A2C s A-L 35.4 mL/m2 LVDs 3.00 cm M: 2.5 - 4.0 LA vol/ BSA A4C s A-L 22.7 mL/m2 Ao Root d 2.88 cm M: 3.1 - 3.7 LA Vol/ BSA Biplane s A-L 29.4 mL/m2 RA Area A4C 17.80 cm2 LA Area A4C s MOD 17.62 cm2 RA Vol/ BSA A4C s A-L 27.0 mL/m2 LA Area A2C s MOD 21.24 cm2 Ao Asc Diam d 3.57 cm M: 2.6 - 3.4 LV EF A4C MOD 59.5 % LV EF Teichholz 62.3 % LV EF A2C MOD 59.3 % LVEF (Colin's) 57.96 % M: 52 - 72 LV EF Biplane MOD 58.0 % LV Volume 79.51 mL M: 62 - 150 SV 60.96 mL LV Volume Index 40.77 mL/m2 M: 34 - 74 SV Index 31.21 mL/m2 LV Vol Biplane MOD 105.2 mL FS 33.40 % M-Mode TAPSE 2.50 cm (M/F) >1.7 LV Diastology MV E' medial 0.073 (>0.07 m/s) E/A Ratio 1.0 LV E/e MED 12.45 (<14) MV E Vmax 0.91 (0.4-1.3 m/s) MV E' lateral 0.108 (>0.1 m/s) MV A Vmax 0.95 (0.4-1.3 m/s) LV E/e LAT 8.50 (<14) MV E/A Ratio 0.94 MV E/E' medial 12.47 MV E/E' lateral 8.51 Aortic Valve LVOT Area 3.11 cm2 AoV Area Vmax 2.14 cm2 LVOT Vmax 1.36 m/s AoV Area/ BSA (Vmax) 1.10 cm2/m2 LVOT Mean Edgar. 0.89 m/s LA NENA Mean Edgar. 2.02 cm2 LVOT Peak Grad 7.4 mmHg LA NENA Mean Edgar. Index 1.04 cm2/m2 LVOT Mean Grad 3.7 mmHg AR DT 2418 msec LVOT VTI 0.320 m AR PHT 701 msec LVOT Diam s 1.95 cm AoV Vmax 1.98 m/s Velocity Ratio 0.68 AoV Mean Edgar. 1.37 m/s AoV Peak Grad 15.7 mmHg LVOT SV 99.68 mL AoV Mean Grad 8.4 mmHg AoV VTI 0.460 m AoV Area VTI 2.17 cm2 AoV Area/ BSA (VTI) 1.11 cm/m2 Mitral Valve MV DT 188 (160-240 msec) MV PHT 54 msec MV Area PHT 4.04 cm2 Pulmonary Valve PV Vmax 1.26 (0.5-1.5 m/s) RVOT Peak Gr. 2.43 mmHg PV Peak Grad 6.3 mmHg RVOT Mean Gr. 1.20 mmHg PV Mean Grad 2.9 mmHg RVOT VTI 0.193 m PV VTI 0.235 m RVOT Vmax 0.78 m/s Tricuspid Valve TR Peak Grad 17.6 mmHg TR Vmax 2.10 m/s RA Pressure 3.00 mmHg RVSP (TR) 20.7 mmHg
--- NOTE | 2020-03-08 | DI.US_ITS ---
EXAM: US CAROTID CLINICAL HISTORY: stroke. TECHNIQUE: Ultrasound carotids performed using grayscale, color-flow, and spectral Doppler imaging. COMPARISON: No exams were available for comparison FINDINGS: RIGHT CAROTID ARTERY: Plaque: Moderate calcific plaque is seen in the common carotid artery, the carotid bulb and the exter nal carotid artery. Velocity elevation: Please see below. LEFT CAROTID ARTERY: Plaque: Moderate calcific plaque is seen in the common carotid artery. Marked calcific plaque is see n in the carotid bulb and the proximal internal carotid artery. Velocity elevation: Please see below. VERTEBRAL ARTERIES: Antegrade flow. Measurements: R Bulb: 130.5cm/s PS / 37.9cm/s ED R CCA: 109.3cm/s PS / 24.4cm/s ED R ECA: 155.5cm/s PS / 10.2cm/s ED R ICA Prox: 238.6cm/s PS /69.4cm/s ED R ICA Mid: 219.8cm/s PS / 36.2cm/s ED R ICA Distal: 199.6cm/s PS /41.9cm/s ED R Vert: 69.4cm/s PS / 17.4cm/s ED R SVR: 2.18 R DVR: 2.84 L Bulb: 449.5cm/s PS /29.7cm/s ED L CCA: 58.9cm/s PS / 12.6cm/s ED L ECA: 216.6cm/s PS /31.6cm/s ED L ICA Prox:444.2cm/s PS / 43.2cm/s ED L ICA Mid: 56.7cm/sPS / 8.8cm/s ED L ICA Distal: 29.2cm/s PS / 7.7cm/s ED L Vert: 45.7cm/s PS / 14.3cm/s ED L SVR: 7.54 L DVR: 3.43 IMPRESSION: 1. Marked velocity elevations in the left carotid artery system resulting in near occlusion of the le ft internal carotid artery. 2. Velocity elevations in the right internal carotid artery resulting in greater than 70 percent inte rnal carotid artery stenosis. 3. Significant atherosclerotic disease in the neck, left greater than right. Criteria for Carotid Stenosis: Normal: ICA PSV <125 cm/s no plaque or intimal thickening is visible. <50% stenosis: ICA PSV <125 cm/s and plaque or intimal thickening is visible. 50-69% stenosis: ICA PSV is 125-250 cm/s and plaque is visible. >70% stenosis to near occlusion: ICA PSV >250 cm/s with visible plaque and luminal narrowing. DATA REPOSITORY:
--- NOTE | 2020-03-08 | DI.MRI_ITS ---
CLINICAL HISTORY: aphasia. TECHNIQUE: Multiplanar multisequence MRA of the brain was performed. COMPARISON: None. FINDINGS: Carotid Arteries: No aneurysm or occlusion. There is marked narrowing of the anterior genu of the ca vernous portion of the left internal carotid artery. Anterior Cerebral Arteries: Right: No aneurysm, occlusion or significant stenosis. Left: No aneurysm or occlusion. There is moderately severe narrowing of the left A1 segment. The r emainder of the left anterior cerebral artery is unremarkable. Middle Cerebral Arteries: Right: No aneurysm, occlusion or significant stenosis. Left: No aneurysm or occlusion. There is moderate narrowing of an M2 segment. Posterior Cerebral Arteries: Right: No aneurysm, occlusion or significant stenosis. Left: No aneurysm, occlusion or significant stenosis. Vertebral Arteries: Right: No aneurysm, occlusion or significant stenosis. Left: No aneurysm, occlusion or significant stenosis. Basilar Artery: No aneurysm, occlusion or significant stenosis. IMPRESSION: 1. Moderate narrowing of a left M2 segment of the left MCA. 2. Moderately severe narrowing of the A1 segment of the left MANNY. 3. Moderate narrowing of the anterior genu of the cavernous portion of the left ICA. DATA REPOSITORY:
[2020-03-08 07:17] LABS: Troponin I 0.09 ng/mL (<0.06)
--- NOTE | 2020-03-08 08:26 | W.PM.PROGNOT ---
Date of Service Date of service: 03/08/20 Time of Service: :22 Assessment and Plan Assessment and plan (1) Acute ischemic left MCA stroke: Status: Acute Assessment and plan: In setting of apparent carotid stenosis on US/MRA. Will obtain CTA. Initiated on asa (patient was not taking it at the time of the event). Continue statin. May require transfer to a tertiary care facility for a vascular intervention. Await neurology consult and a speech therapy eval. (2) Carotid stenosis: Status: Acute Assessment and plan: As above - obtain CTA head/neck (3) Expressive aphasia: Status: Acute Assessment and plan: Speech therapy consulted (4) Elevated troponin: Status: Acute Assessment and plan: Await echo. EKG without obvious acute ischemia. Possibly type 2 NSTEMI - will need ischemic workup, possibly as outpatient. No evidence of Afib as of right now. Continue asa/statin. Consider cardiology consult. (5) DVT prophylaxis: Status: Acute Assessment and plan: start sc heparin (6) Discharge planning issues: Status: Acute Assessment and plan: Full code May require transfer to a tertiary care facility depending on results of CTA Subjective Subjective Interval history since last seen: Mr Mcwilliams is able to have a conversation with me, but he is having word finding difficulties with me. He denies dizziness, headache, chest pain, shortness of breath, numbness/tingling. He states he was having difficulty saying (making words) what he was reading on the board Overnight, receptive aphasia (?also expressive). This seems to be coming and going. Nursing felt he was unable to answer questions because he wasn't understaning. Waxing and waning. ?LLE weaker per nursing. SBP 90-120's overnight. Exam Narrative Exam Narrative: General: pleasant male who appears younger than his stated age; A&Ox3 Neuro: A&Ox3, CN II - XII intact, sensory intact, 5/5 strength throughout on my exam, does have expressive aphasia; I did not see him having receptive aphasia while I was in the room HEENT: EOMI, MMM Heart: RRR, no m/r/g Lungs: CTAB Abdomen: soft, nontender, nondistended Extremities: no e/c/c BLE's Objective Objective Clinical Data: Abnormal lab results 03/07/20 03/07/20 03/07/20 Range/Units 16:56 16:56 18:45 RBC 4.08 L (4.50-6.00) m/cumm Hct 39.0 L (40.0-50.0) % MCV 95.6 H (80-95) fL MCH 33.6 H (27.0-33.0) pg Absolute Monocytes 1.13 H (0.11-0.7) k/cumm Potassium 3.4 L (3.5-5.1) mmol/L BUN 29 H (7-18) mg/dL Creatinine 1.41 H (0.70-1.30) mg/dL Glucose 123 H (74-106) mg/dL AST 13 L (15-37) U/L Alkaline Phosphatase 45 L (46-116) U/L Troponin I 0.17 H* 0.16 H* (<0.06) ng/mL 03/08/20 Range/Units 06:08 RBC (4.50-6.00) m/cumm Hct (40.0-50.0) % MCV (80-95) fL MCH (27.0-33.0) pg Absolute Monocytes (0.11-0.7) k/cumm Potassium (3.5-5.1) mmol/L BUN (7-18) mg/dL Creatinine (0.70-1.30) mg/dL Glucose (74-106) mg/dL AST (15-37) U/L Alkaline Phosphatase (46-116) U/L Troponin I 0.09 H* (<0.06) ng/mL Vital Signs Temperature 36.6 C 03/08/20 03:10 Temperature Source Temporal Artery Scan 03/08/20 03:10 Pulse 46 L 03/08/20 04:01 Pulse 49 L 03/08/20 04:01 Respiratory Rate 13 03/08/20 04:01 Respiratory Effort Non-Labored 03/08/20 03:10 Respiratory Depth Normal 03/08/20 03:10 Respiratory Pattern Normal 03/08/20 03:10 Blood Pressure 123/53 L 03/08/20 04:01 Blood Pressure Mean 69 03/08/20 04:01 Blood Pressure Position Supine 03/08/20 03:10 Pulse Oximetry 96 03/08/20 03:10 Oxygen Delivery Method Room Air 03/08/20 03:10 Oxygen Flow Rate 0 03/08/20 03:10 Pain Level 0 03/08/20 03:10 Intake & Output 03/07/20 03/07/20 03/08/20 11:59 23:59 11:59 Intake Total 60 / 60 0 / 0 Output Total 100 / 100 Balance 60 / 60 -100 / -100 Weight 76.2 kg Intake: IV 0 / 0 Oral 60 / 60 Output: Urine 100 / 100 Other: Urine Color Yellow Urine Appearance Clear Urine Odor Normal Voiding Methods Urinal Laboratory Results WBC 7.98 k/cumm (4.4-10.8) 03/07/20 16:56 RBC 4.08 m/cumm (4.50-6.00) L 03/07/20 16:56 Hgb 13.7 g/dL (13.5-17.5) 03/07/20 16:56 Hct 39.0 % (40.0-50.0) L 03/07/20 16:56 MCV 95.6 fL (80-95) H 03/07/20 16:56 MCH 33.6 pg (27.0-33.0) H 03/07/20 16:56 MCHC 35.1 g/dL (32.0-36.0) 03/07/20 16:56 RDW 12.7 % (11.8-14.1) 03/07/20 16:56 Plt Count 235 x1000/uL (130-400) 03/07/20 16:56 MPV 9.4 fL (8.0-11.0) 03/07/20 16:56 Immature Gran % 0.4 % 03/07/20 16:56 Neutrophils % 59.3 03/07/20 16:56 Lymphocytes % 24.4 03/07/20 16:56 Monocytes % 14.2 03/07/20 16:56 Eosinophils % 1.4 03/07/20 16:56 Basophils % 0.3 03/07/20 16:56 Absolute Neutrophils 4.74 k/cumm (1.2-6.7) 03/07/20 16:56 Absolute Lymphocytes 1.95 k/cumm (1.2-3.4) 03/07/20 16:56 Absolute Monocytes 1.13 k/cumm (0.11-0.7) H 03/07/20 16:56 Absolute Eosinophils 0.11 k/cumm (0.0-0.7) 03/07/20 16:56 Absolute Basophils 0.02 k/cumm (0.0-0.2) 03/07/20 16:56 Sodium 140 mmol/L (136-145) 03/07/20 16:56 Potassium 3.4 mmol/L (3.5-5.1) L 03/07/20 16:56 Chloride 106 mmol/L (98-107) 03/07/20 16:56 Carbon Dioxide 24.2 mmol/L (21.0-32.0) 03/07/20 16:56 Anion Gap 9.8 mmol/L (3-11) 03/07/20 16:56 BUN 29 mg/dL (7-18) H 03/07/20 16:56 Creatinine 1.41 mg/dL (0.70-1.30) H 03/07/20 16:56 Estimated GFR/1.73 m2 49.13 (mL/min/1.73m2) 03/07/20 16:56 Glucose 123 mg/dL (74-106) H 03/07/20 16:56 Calcium 8.5 mg/dL (8.5-10.1) 03/07/20 16:56 Magnesium 2.1 mg/dL (1.8-2.4) 03/07/20 16:56 Total Bilirubin 0.3 mg/dL (0.2-1.0) 03/07/20 16:56 AST 13 U/L (15-37) L 03/07/20 16:56 ALT 20 U/L (16-63) 03/07/20 16:56 Alkaline Phosphatase 45 U/L (46-116) L 03/07/20 16:56 Troponin I 0.09 ng/mL (<0.06) H* 03/08/20 06:08 Total Protein 7.0 g/dL (6.4-8.2) 03/07/20 16:56 Albumin 3.5 g/dL (3.4-5.0) 03/07/20 16:56 US carotid: 1. Marked velocity elevations in the left carotid artery system resulting in near occlusion of the left internal carotid artery. 2. Velocity elevations in the right internal carotid artery resulting in greater than 70 percent internal carotid artery stenosis. 3. Significant atherosclerotic disease in the neck, left greater than right. MRI brain: Findings consistent with an acute left MCA distribution infarct. MRA brain: 1. Moderate narrowing of a left M2 segment of the left MCA. 2. Moderately severe narrowing of the A1 segment of the left MANNY. 3. Moderate narrowing of the anterior genu of the cavernous portion of the left ICA. Echo: ordered, pending
[2020-03-08 08:28] LABS: COVID-19 RT-PCR UVMMC Result Negative (Negative)
[2020-03-08 09:01] LABS: Anion Gap 9.5 mmol/L (3-11); BUN 27 mg/dL (7-18); CO2 21.5 mmol/L (21.0-32.0); CREATININE 1.27 mg/dL (0.70-1.30); Calcium 7.9 mg/dL (8.5-10.1); Calculated LDL 48 mg/dL (<100); Chloride 111 mmol/L (98-107); Cholesterol 88 mg/dL (<200); Estimated GFR 55.44 (mL/min/1.73m2); Glucose 139 mg/dL (74-106); HDL Cholesterol 22 mg/dL (40-60); Magnesium 1.9 mg/dL (1.8-2.4); Potassium 3.6 mmol/L (3.5-5.1); Sodium 142 mmol/L (136-145); Triglyceride 91 mg/dL (<150); Vitamin B12 343 pg/mL (193-986)
[2020-03-08 09:03] LABS: Hemoglobin A1C 6.8 % (3.8-5.6)
--- NOTE | 2020-03-08 09:09 | INITIAL_ITS ---
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 PREVIOUS FUNCTIONAL STATUS/SOCIAL/FAMILY SUPPORTS:: Juan resides with his , Ele in [place], [place]. He is independent with ADLs in the community. CURRENT FUNCTIONAL STATUS:: Juan was sitting up in bed, engaged in a speech consult. CM continues to follow. ADVANCE DIRECTIVES:: None on file at [facility]. Has patient been provided with info about the portal/API?: Yes Did the patient sign up for the portal?: Yes (Previously) CODE STATUS:: Full Code INSURANCE COVERAGE / FINANCIAL ISSUES:: BC/BS. Medicare CURRENT HOME/COMMUNITY SERVICES/EQUIPMENT:: No current services or equipment. PRIMARY CARE PHYSICIAN:: Christopher Suarez DO POTENTIAL DISCHARGE NEEDS:: Follow up appointment with PCP. PATIENT/FAMILY EDUCATION NEEDS:: Review discharge instructions, discuss Ask Me Three. ANTICIPATED BARRIERS TO DISCHARGE:: None identified. TRANSPORTATION:: Via private vehicle with his . PLAN:: Juan will return home when ready per MD, he will follow up with his PCP and plan of care as prescribed. He will transport via private vehicle with his .
[2020-03-08] MEDS: Normal Saline 1,000 ML 125 ML IV ×2 (09:18→18:30)
[2020-03-08] MEDS: Aspirin 325 MG TAB PO (09:49)
--- NOTE | 2020-03-08 11:50 | W.INDIABCONS ---
Date of service: 03/08/20 Time of Service: 11:50 Diabetes Inpatient Consult DESCRIPTION/ASSESSMENT: 75 year old male admitted with CVA, expressive aphasia. 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 BMI wnl. Recent A1C (03/08/20) 6.8% indicating adequate blood sugar control in last 90 days. Following regular diet with regular texture, tolerating well per nursing. Met with Juan today, speech improving but continues to have deficeits, unclear of comprehension. Provided him with written materials on diabetes and diet management and contact information if needs diet follow up s/p discharge. At this time, blood sugars in adequate control. INTERVENTION: Provided written material on diabetes and diet management, contact info for follow up in outpatient setting. PLAN: continue current diet plan, Pt to follow up with outpatient nutrition counseling if needed. Time Spent in Nutritional Counseling and Treatment: 10 min spent face to face
[2020-03-08] MEDS: Normal Saline Flush 10 ML SYR IVP ×2 (12:28→19:43)
[2020-03-08] MEDS: Gadoterate meglumine 20 ML VIAL 15 ML IVP (12:29)
[2020-03-08] MEDS: Insulin Aspart 300 UNITS/3 ML PEN SC ×2 (12:55→18:07)
[2020-03-08] MEDS: Heparin 5,000 UNITS/ML VIAL 5000 UNITS SC (14:40)
--- NOTE | 2020-03-08 15:06 | PHA.REVIEW ---
Pharmacy Admission Review - Admission Clinical Review (Last Reviewed 03/07/20 @ 19:36 by Elia Garcia MD) Discharge planning issues (Acute) DVT prophylaxis (Acute) Elevated troponin (Acute) Carotid stenosis (Acute) Acute ischemic left MCA stroke (Acute) Expressive aphasia (Acute) atorvastatin [From Lipitor] Adverse Reaction (Severe, Verified 03/07/20 16:55) sweating, sick to stomach metformin Adverse Reaction (Mild, Verified 03/07/20 16:55) DIARRHEA tape Adverse Reaction (Mild, Uncoded 03/07/20 16:55) Skin Rash Height 5 ft 11 in Weight 76.2 kg - Renal Dosing Renal Dosing: BUN 27 mg/dL (7-18) H 03/08/20 06:08 Creatinine 1.27 mg/dL (0.70-1.30) 03/08/20 06:08 Medications needing adjustments: Reviewed (Crcl ~54 mL/min current meds okay) - Anticoagulation Anticoagulation: Hgb 13.7 g/dL (13.5-17.5) 03/07/20 16:56 Hct 39.0 % (40.0-50.0) L 03/07/20 16:56 Plt Count 235 x1000/uL (130-400) 03/07/20 16:56 Creatinine 1.27 mg/dL (0.70-1.30) 03/08/20 06:08 DVT Prohphylaxis: Reviewed Medications: Heparin Therapeutic Anticoagulation: N/A - Opiate Usage Evaluate Pain Scale/Pains Meds: N/A - Relevant Labs Sodium 142 mmol/L (136-145) 03/08/20 06:08 Potassium 3.6 mmol/L (3.5-5.1) 03/08/20 06:08 Chloride 111 mmol/L (98-107) H 03/08/20 06:08 Magnesium 1.9 mg/dL (1.8-2.4) 03/08/20 06:08 Electrolytes, C-Reactive P, ESR: Reviewed - DM Control DM Control: Glucose 139 mg/dL (74-106) H 03/08/20 06:08 Hemoglobin A1c 6.8 % (3.8-5.6) H 03/08/20 06:08 Finger Stick Blood Glucose 150 Finger Stick Blood Glucose 150 Finger Stick Blood Glucose 150 Finger Stick Blood Glucose 133 Insulin Dosing: Reviewed (sliding scale aspart ordered) - Heart Failure/MA Heart Failure/MA: Troponin I 0.09 ng/mL (<0.06) H* 03/08/20 06:08 EF%, ZONIA's, B-Blockers, Diuretics: Reviewed - BP Control BP Control: Blood Pressure [Left Arm] 154/64 Blood Pressure 154/64 Blood Pressure 137/60 Blood Pressure 134/65 Blood Pressure 117/56 Blood Pressure 123/53 Blood Pressure 94/52 If elevated: Reviewed (BP meds discontinued to allow for permissive hypertension per H&P) - Qtc Review If Elevated: N/A - IV to PO Switch IV Medications: N/A - Home Meds Home Med List reviewed: Reviewed Relevent Home Meds Not ordered & why?: epinephrine(PRN), glipizide(has sliding scale aspart), losartan, metoprolol (permissive hypertenstion), magnesium chloride, nitroglycerin, prednisone - Current meds Current Medication Order Review: Intervened (fixed melatonin order (PRN in frequency and schedule), discontinued DI meds, discontinued duplicate orders) - Comments Comments/Follow Ups: Watch BP, BG and for med changes.
--- NOTE | 2020-03-08 15:35 | W.SPEECHEVAL ---
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 Pt is currently tolerating full PO diet of Level 7-regular solids and level 0-thin liquids without complications; ELECTRICIAN DECK referred for evaluation of expressive/receptive aphasia at this time; pt's communication abilities have 'waxed and waned' per nursing and documentation review, secondary to medical status and overall cognitive fatigue, complicated by hearing deficits (deaf in left ear) and ability to visualize speaker's mouth. Ele (Crystal) present during second half of evaluation today and provided with overview/outcomes from evaluation today. Subjective: Patient awake/alert and oriented to self and place during evaluation, does not endorse pain. Patient does demonstrate self-awareness of deficits during evaluation today; demonstrates increased frustration with spoken expression/lexical retrieval, reading multisyllable words and/or longer phrases aloud, and more complex linguistic comprehension tasks during formal assessments [KPT, QAB]. Assessment: Oral Motor Examination: Grossly WFL Dentition: WFL Oral Hygiene: WFL Objective: KPT [Kitchen Picture Test] partially administered (not completed due to initial patient frustration levels) Part A/Expressive Language: 11/24 Part B/Practical Judgment: (not completed; patient able to identify 1/3 safety issues in picture before becoming too overwhelmed with task) QAB [Quick Aphasia Battery] administered (patient willing to participate in full administration of QAB with counseling for purpose, education re: aphasia, and discussion of patient interests, ie playing guitar/singing, his , Crystal, and fishing) QAB Totals Word Comprehension: Sentence Comprehension: Word Findin/24 Speech Motor Programmin/8 Repetition: Readin/24 Automatic speech: numerals 1-20, days of week, common phrases/responses - intact, months of year - not tested Following Verbal commands: Simple - 2/2 accuracy; Increased linguistic complexity - 1/3 accuracy Grammatical Construction and Aphasic Connected Speech features: MLU 3-4 words/reduced length and complexity of utterances; reduced speech rate, agrammatism (omission of words and morphemes/occasional telegraphic speech); occasional garbled syntax and innappropriate juxtaposition of words and phrases; marked anomia;mild semantic paraphasias, marked phonemic paraphasias, and frequent self-corrections/false starts, and occasional retraced sequences. Patient does independently demonstrate use of effective circumlocution; also benefits from cues for use of gestures, phonemic cues, and use of repetition, increased processing time. Impressions: Patient currently demonstrates expressive/receptive nonfluent aphasia as characterized by difficulties with auditory comprehension [understanding complex speech], written comprehension [full understanding of written text; reading longer/more complex words/phrases], verbal expression [spoken language, lexical retrieval] and some evidence of verbal apraxia with more complex, multisyllable verbal repetition tasks (inconsistent). Written expression not assessed today due to time/setting constraints. Patient demonstrates intact sense of humor and pragmatic capabilities, with willingness to participate in further skilled treatment with ELECTRICIAN DECK in current and/or discharge setting. Communication Recommendations: Comprehension: Encourage patient to look at speaker's mouth whenever visible; consider use of masks with clear plastic window if available. Reduce rate of speech and complexity of words when talking to patient. Rephrase sentences and/or concepts if comprehension is unclear. Provide visual aids/resources whenever possible. Offer simplified written text whenever possible for patient to review with caregivers/staff. Utilize Yes/No questions to determine understanding after new concepts are presented. Expression: Allow patient additional time to express self and/or multiple attempts to find word(s) For word finding difficulties during conversation: Encourage patient to describe what things look/feel like, where they may be located, how they function, and/or use related words (synonyms) Provide patient with visual aids, and assistance with reading text aloud, encouraging spoken repetition. Encourage use of relevant gestures to enhance expression Diet Textures: Level 7-regular solids and level 0-thin liquids, medications whole with thins and/or puree as tolerated Patient motivations/goals: To know / understand overall medical prognosis. To return to singing/playing guitar again. To speak and read normally. Retirement Goals: To be determined pending further diagnostic treatment session to further inform patient-centered treatment plan of care. Short Term Goals: To be determined pending further diagnostic treatment session to further inform patient centered treatment plan of care. Patient recommended for continued ELECTRICIAN DECK treatment 3-5x/week while in acute care to address communication deficits secondary to expressive/receptive aphasia with caregiver/staff training as needed, assess full aphasic profile with further standardized aphasia battery; recommend referral for continued ELECTRICIAN DECK evaluation & treatment in post-acute setting. Patient/caregiver/staff education provided, including written information for review and low tech AAC device on tableside as needed. ELECTRICIAN DECK Service Code: 64947
[2020-03-08] MEDS: Omnipaque 350 MG/ML 100 ML BTL IJ (16:16)
--- NOTE | 2020-03-08 16:42 | NCONE_ITS ---
Date of service: 03/08/20 Time of Service: 16:42 Assessment and Plan Assessment and plan (1) Acute ischemic left MCA stroke: Status: Acute (2) Left carotid stenosis: Status: Acute Assessment and plan: Mr. Mcwilliams is a 75 year-old man admitted with acute onset global aphasia secondary to acute ischemic stroke found to have severe L ICA stenosis (has mild-moderate R ICA stenosis as well). TTE still pending but stroke due to the stenosis. Start heparin drip. Continue permissive hypertension but avoid very high numbers. Continue antiplatelets and transfer for intervention/vascular. The R ICA is not symptomatic and does not need intervention at this time. He should follow-up in neurology clinic in 4-6 weeks. History of Present Illness History of Present Illness Chief Complaint: stroke Narrative: Handedness: right. HPI: Mr. 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 Yesterday am around 1030am he developed acute onset expressive aphasia with difficulty getting his words out and using the wrong words. His symptoms waxed and waned. He took a nap and when symptoms were still present in the afternoon presented to the [facility] ER at the prompting of his PCP around 5pm. He had no associated weakness, numbness, or vision complaints. In the ER he had a BP of 152/61 with a Cr of 1.41 (baseline ~1.2). His initial troponin was 0.17 -> 0.16 -> 0.09. He was not a candidate for tPA as he was outside of the time window. There was also some thought that he was improving. Of note, he is normally on aspirin, but ran out 2 weeks ago and thus has not been on aspirin since. He was given ASA in the ER and admitted for further work-up as below. He has had slight improvement in speech per family but remains globally aphasic in my opinion. Work-up: -CTH: No acute findings. Mild atrophy and chronic vascular changes. I reviewed these images personally. -MRI brain w/o: Acute infarcts in the left temporal lobe and left parietal lobe. I reviewed these images personally. -MRA brain w/o: suspicious for severe L ICA stenosis due to low flow throughout the left hemisphere. Diffuse atherosclerosis in anterior and posterior circulati ons. I reviewed these images personally. -CUS: L ICA near occlusion with >70% R ICA stenosis. -CTA head and neck: severe(>90%) L ICA stenosis just after the bifurcation with mild R ICA stenosis (rads read as ~65%). Distal R vertebral occlusion in my opinion read as severe stenosis by radiology. Severe stenosis of distal L vertebral artery and mild-moderate stenosis of subclavian artery. I reviewed these images personally. 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 stress [facility]ing medically. 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 Social History Smoking/Tobacco Use Status: Former Tobacco Use Alcohol Intake: current Alcohol Intake frequency: a few times a week Alcohol type: beer Drug use: Never Substance use type: does not use Caregiver/Support person: Yes Household members: spouse Communication Needs: None Do you need help understanding health information?: Never Pets and animals: Yes Pets and animals: cat(s), dog(s) and horse(s) Sexually active: Yes Do you think of yourself as: straight/heterosexual Current gender identity: male What is your relationship status?: How often do you talk on the phone with friends or family?: once per week How often do you get together with friends or relatives?: once per week How often do you attend pentecostalism or mu-ism services?: 1-3 times per year Do you belong to any clubs or organized social groups?: no Panel score (0-1 are the most socially isolated patients): 1 What type of physical activity do you participate in: none Tiffanie/Jain: No preference Special tiffanie needs: No Seatbelt use: always Drive intox or ride w/intox compactor driver: No Do you feel safe at home: Yes Do you feel safe in your relationship?: Yes Visit Medication and Allergies Active Medications Generic Name Dose Route Start Last Admin Trade Name Freq PRN Reason Stop Dose Admin Acetaminophen 650 mg 03/07/20 20:02 Tylenol PO Q4H PRN PRN Aspirin 325 mg 03/08/20 08:30 03/08/20 09:49 PO 325 mg DAILY KIM Administration Cyanocobalamin 1,000 mcg 03/09/20 08:30 Vitamin B-12 PO DAILY KIM Dextrose 0 gm 03/08/20 07:57 Insta-Glucose PO DIRECTED PRN Dextrose/Water 0 gm 03/08/20 07:57 IVP DIRECTED PRN Dimethicone/Zinc Oxide 0 gm 03/07/20 19:50 Vega Protect Cream TP PRN PRN Gadoterate Meglumine 15 ml 03/08/20 12:30 03/08/20 12:29 Dotarem IVP 03/08/20 23:59 15 ml DIRECTED KIM Administration Heparin Sodium (Porcine) 5,000 units 03/08/20 14:00 03/08/20 14:40 SC 5,000 units Q12H KIM Administration Sodium Chloride 1,000 mls @ 125 mls/hr 03/07/20 17:00 03/08/20 09:18 Saline 1000ml Bag IV 125 mls/hr INFUSION KIM Administration IV Miscellaneous Supplies 1 each 03/07/20 18:00 IV DIRECTED KIM Insulin Aspart 0 units 03/08/20 11:30 03/08/20 12:55 Novolog Flexpen SC 1 unit AC & HS KIM Administration Protocol Iohexol 100 ml 03/08/20 16:30 03/08/20 16:16 Omnipaque 350 IJ 04/07/20 23:59 100 ml DIRECTED KIM Administration Melatonin 3 - 6 mg 03/08/20 15:15 PO HS PRN PRN Insomnia Rosuvastatin Calcium 20 mg 03/07/20 22:00 03/07/20 22:37 Crestor PO Not Given QPM KIM Sodium Chloride 0 ml 03/07/20 17:57 Saline Flush 10 Ml Syringe IVP PRN PRN Allergies atorvastatin [From Lipitor] Adverse Reaction (Severe, Verified 03/07/20 16:55) sweating, sick to stomach metformin Adverse Reaction (Mild, Verified 03/07/20 16:55) DIARRHEA tape Adverse Reaction (Mild, Uncoded 03/07/20 16:55) Skin Rash Exam Narrative Exam Narrative: Physical Exam: Gen: Patient of apparent stated age, NAD Head and face: no facial or cranial abnormalities Neck: Supple, no meningismus, no occipital tenderness CV: + S1, S2, RRR, no murmur Resp: CTA B/L Abd: soft, nontender, nondistended Ext: No edema. No clubbing or cyanosis. No bony deformity. Neuro Exam: Language: fluency, naming, repetition, and comprehension all impaired; able to follow 2 steps commands at times; impaired by hearing loss (he generally reads lips and I was not wearing a compliant mask) Mental Status: AAOx3, current events and fund of knowledge not tested Speech: mild dysarthria Cranial nerves: Funduscopy: not performed CN II: visual moreno intact CN III, IV, : extraocular movements intact, no nystagmus, pupils symmetric and reactive to light CN V: face sensation intact to PP CN VII: no facial asymmetry noted CN VIII: hearing intact bilaterally CN IX, X: palate rises symmetrically CN XI: trapezius/SCM 5/5 bilaterally CN XII: protrudes tongue symmetrically Sensory: intact to PP in all extremities; other modalities not tested due to comprehension issues Motor: bulk and tone intact. Fine motor movements intact bilaterally. No pronator drift. Strength 5/5 throughout including the deltoids, biceps, triceps, wrist extensors, hip flexors, knee flexors, knee extensors, ankle flexors, and ankle extensors. Reflexes: hyporeflexic throughout; toes down going bilaterally; Coordination: FTN and HTS intact bilaterally Gait: deferred Results Last Vital Signs Temp 36.8 C 03/08/20 13:15 Pulse 58 L 03/08/20 13:15 Resp 16 03/08/20 13:15 BP 154/64 H 03/08/20 13:15 Pulse Ox 97 03/08/20 13:15 Labs Result diagrams: 03/07/20 16:56 03/08/20 06:08 Labs: Laboratory Results - last 24 hr 03/07/20 03/07/20 03/07/20 16:56 16:56 18:13 WBC 7.98 RBC 4.08 L Hgb 13.7 Hct 39.0 L MCV 95.6 H MCH 33.6 H MCHC 35.1 RDW 12.7 Plt Count 235 MPV 9.4 Immature Gran % 0.4 Neutrophils % 59.3 Lymphocytes % 24.4 Monocytes % 14.2 Eosinophils % 1.4 Basophils % 0.3 Absolute Neutrophils 4.74 Absolute Lymphocytes 1.95 Absolute Monocytes 1.13 H Absolute Eosinophils 0.11 Absolute Basophils 0.02 Sodium 140 Potassium 3.4 L Chloride 106 Carbon Dioxide 24.2 Anion Gap 9.8 BUN 29 H Creatinine 1.41 H Estimated GFR/1.73 m2 49.13 Glucose 123 H Hemoglobin A1c Calcium 8.5 Magnesium 2.1 Total Bilirubin 0.3 AST 13 L ALT 20 Alkaline Phosphatase 45 L Troponin I 0.17 H* Total Protein 7.0 Albumin 3.5 Triglycerides Total Cholesterol LDL Cholesterol, Calc HDL Cholesterol Vitamin B12 COVID-19 PCR Negative Nasopharyn COVID-19 PCR Not Applicable Ref Test Perform Site [facility] 03/07/20 03/08/20 03/08/20 18:45 06:08 06:08 WBC RBC Hgb Hct MCV MCH MCHC RDW Plt Count MPV Immature Gran % Neutrophils % Lymphocytes % Monocytes % Eosinophils % Basophils % Absolute Neutrophils Absolute Lymphocytes Absolute Monocytes Absolute Eosinophils Absolute Basophils Sodium 142 Potassium 3.6 Chloride 111 H Carbon Dioxide 21.5 Anion Gap 9.5 BUN 27 H Creatinine 1.27 Estimated GFR/1.73 m2 55.44 Glucose 139 H Hemoglobin A1c 6.8 H Calcium 7.9 L Magnesium 1.9 Total Bilirubin AST ALT Alkaline Phosphatase Troponin I 0.16 H* 0.09 H* Total Protein Albumin Triglycerides 91 Total Cholesterol 88 LDL Cholesterol, Calc 48 HDL Cholesterol 22 L Vitamin B12 343 COVID-19 PCR Nasopharyn COVID-19 PCR Ref Test Perform Site
--- NOTE | 2020-03-08 17:03 | DI.VRAD_ITS ---
Addendum created by Mark Vanegas MD on 03/08/2020 5:18:42 PM EDT THIS REPORT CONTAINS FINDINGS THAT MAY BE CRITICAL TO PATIENT CARE. The findings were verbally communicated via telephone conference with DIANE CARYE at 5:18 PM EDT on 03/08/2020. The findings were acknowledged and understood. Initial report created on 03/08/2020 5:03:16 PM EDT PROCEDURE INFORMATION: Exam: CT Angiography Head Without And With Contrast Exam date and time: 03/08/2020 4:16 PM Age: 75 years old Clinical indication: Other: L mca territory CVA TECHNIQUE: Imaging protocol: Computed tomographic angiography of the head without and with intravenous contrast. 3D rendering (Not supervised by radiologist): MIP and/or 3D reconstructed images were created by the technologist. COMPARISON: MR ANGIO BRAIN WO 03/08/2020 12:09 PM FINDINGS: Anterior cerebral arteries: No occlusion or significant stenosis. No aneurysm. Right internal carotid artery: Intracranial segment is patent with no evidence of hemodynamically significant stenosis. No aneurysm. Right middle cerebral artery: No occlusion or significant stenosis. No aneurysm. Right posterior cerebral artery: No occlusion or significant stenosis. No aneurysm. Right vertebral artery: Intracranial right vertebral artery is small caliber though otherwise patent. Left internal carotid artery: Calcific atherosclerotic changes of the intracranial left internal carotid artery cause multifocal areas of mild and moderate stenosis. Left middle cerebral artery: Short segment moderate stenosis of the proximal aspect of a posterior left M2 branch. Left posterior cerebral artery: No occlusion or significant stenosis. No aneurysm. Left vertebral artery: No occlusion or significant stenosis. No aneurysm. Basilar artery: No occlusion or significant stenosis. No aneurysm. HEAD: Brain: Redemonstration of areas of low attenuation within the left temporal and parietal lobes, consistent with known now subacute left MCA territory infarcts as seen on prior MRI brain. No intracranial hemorrhage or extra-axial fluid collection. No evidence of mass effect or midline shift. Mild prominence of the ventricles and sulci, most likely attributed to parenchymal volume loss. IMPRESSION: 1. No intracranial arterial occlusion or severe stenosis. 2. Other areas of intracranial arterial mild and moderate stenosis, as detailed above. 3. Redemonstration of left temporal and parietal lobe subacute infarcts, consistent with known left MCA territory infarcts as seen on prior MRI brain. Please refer to prior MRI brain for further details. PROCEDURE INFORMATION: Exam: CT Angiography Neck With Contrast Exam date and time: 03/08/2020 4:16 PM Age: 75 years old Clinical indication: Other: L mca territory CVA TECHNIQUE: Imaging protocol: Computed tomography angiography of the neck with intravenous contrast. 3D rendering (Not supervised by radiologist): MIP and/or 3D reconstructed images were created by the technologist. COMPARISON: MR ANGIO BRAIN WO 03/08/2020 12:09 PM FINDINGS: Right common carotid artery: No significant stenosis. No dissection or occlusion. Right internal carotid artery: Atherosclerotic plaques within the proximal extracranial right internal carotid artery cause approximately 65 % stenosis by NASCET criteria. Remaining portions of the extracranial right ICA are patent. Right external carotid artery: No occlusion or significant stenosis. Right vertebral artery: Long segment severe stenosis of the inferior aspect of the extracranial right vertebral artery. The mid to superior extracranial right vertebral artery is small caliber though otherwise patent. Left common carotid artery: No significant stenosis. No dissection or occlusion. Left internal carotid artery: Severe stenosis (greater than 90% by NASCET criteria) of the origin of the left internal carotid artery. Left external carotid artery: No occlusion or significant stenosis. Left vertebral artery: Severe stenosis of the origin of the left vertebral artery. Left vertebral artery is otherwise patent. Subclavian arteries: Mild to moderate stenosis of the origin of the right subclavian artery. Bones/joints: No acute fracture. Soft tissues: Unremarkable. IMPRESSION: 1. Severe stenosis (greater than 90% by NASCET criteria) of the origin of the left internal carotid artery. 2. Severe stenosis of the origin of the left vertebral artery. 3. Approximately 65% stenosis of the proximal right ICA. 4. Long segment severe stenosis of the inferior aspect of the extracranial right vertebral artery. 5. Mild to moderate stenosis of the origin of the right subclavian artery. REFERENCES: NASCET CRITERIA. The degree of internal carotid artery stenosis is based on NASCET criteria. Normal is no stenosis. Mild is less than 50% stenosis. Moderate is 50-69% stenosis. Severe is 70% to 99% stenosis. Total occlusion is no detectable patent lumen. Dictated and Authenticated by: Mark Vangeas MD. Ordering:SARA Yu MD
[2020-03-08 17:41] LABS: PTT Activated 24.7 sec (21.0-31.4)
--- NOTE | 2020-03-08 18:51 | W.PM.DS.N ---
Date of service: 03/08/20 Time of Service: 18:51 DS: Diagnosis Discharge Diagnosis (1) Acute ischemic left MCA stroke: Status: Acute (2) Left carotid stenosis: Status: Acute (3) Vertebral artery stenosis: Status: Acute (4) Elevated troponin: Status: Acute (5) Expressive aphasia: Status: Acute (6) Hypertension: Status: Acute (7) Coronary artery disease of [place] artery of [place] heart with stable angina pectoris: Status: Acute (8) Diabetes: Status: Acute (9) Hyperlipidemia: Status: Acute (10) Malignant neoplasm of kidney: Status: Acute (11) COVID-19 ruled out by laboratory testing: Status: Acute Discharge Plan Disposition Patient Disposition: [facility] Condition: Serious Discharge Details Chief Complaint: CVA/TIA Clinical Impression: Expressive aphasia Reason For Visit: CVA Admit Date/Time: 03/08/20 14:30 Admit Provider: Elia Garcia Attending Provider: Elia Garcia Primary Care Provider: Christopher Suarez ED Provider: Robles Zapien Hospital Course Hospital Course: Mr Mcwillimas is a 75 year old male with PMHx of CAD, NIDDM2, hypertension, dyslipidemia, 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 He napped after having breakfast, but then woke up still with expressive aphasia. He was resistant to go to the ED, and did not arrive to [facility] until 16:43. In the ED, a dry CT of the head was obtained showing decreased attenuation in the left temporal lobe - a possible acute infarct could not be excluded. He was re-initiated on asa (had stopped taking it 2 weeks prior) and continued on his statin. His blood pressure medications were held. The remainder of his workup revealed an acute L MCA infarct in Left temporal and left parietal lobes on the MRI w/w/o contrast. No space occupying lesions were found. His MRA brain showed moderate narrowing of the left M2 segment of L MCA, moderate-severe narrowing of the A1 segment and moderate narrowing of the anterior genu of the cavernous portion of the L ICA. His carotid ultrasound revealed near-occlusion of L internal carotid artery, as well as >70% right carotid artery stenosis. CTA of the head/neck showed no intracranial arterial occlusion/severe stenosis, but it showed >90% severe stenosis at the origin of the L internal carotid artery with severe stenosis of origin of the left vertebral artery, 65% stenosis of the proximal R ICA, as well as severe stenosis of the extracranial vertebral artery and mild to moderate stenosis of the right subclavian artery. The patient was initiated on heparin gtt and a transfer to [facility] Neurology/Stroke service was pursued for further workup and intervention by vascular surgery. The patient was accepted in transfer by Dr Matos of [facility] neurology, whose assistance is greatly appreciated. With Dr Matos's recommendation, the patient was also given one dose of keppra as nursing was reporting receptive aphasia in addition to expressive aphasia which was coming and going, with suspicion that that could be a seizure. Further workup will be done at [facility]. Additionally, on presentation the patient had an elevated troponin of 0.17 without ischemic changes on the EKG. He did not have any arrhythmic events on telemetry, and his troponin trended down to 0.09. He had an echocardiogram showing LVEF of 60%, no wall motion abnormalities, and pulmonary hypertension with RVSP of 20.7. Cardiology consultation is recommended when patient arrives at [facility]. The patient tested negative on routine COVID-19 nasopharyngeal PCR on 03/07/2020 at 18:13. Critical Care Time spent on care for patient as well as completion of his transfer was 60 minutes. Please, note that the below list is list of patient's outpatient medications. Please, look at [facility] for list of current inpatient medications. Home Meds and New Rx's Prescriptions: No Action glipizide 2.5 mg tablet extended release 24hr 2.5 mg PO DAILY Qty: 90 RF: 3 (DME) OneTouch Verio test strips Strip See Rx Instructions .ROUTE .MEDSUPPLY Qty: 100 RF: 6 losartan [Cozaar] 50 mg tablet 50 mg PO DAILY Qty: 90 RF: 3 rosuvastatin [Crestor] 10 mg tablet 20 mg PO DAILY Qty: 30 RF: 12 (DME) OneTouch Ultra Blue Test Strip Strip See Rx Instructions .ROUTE .MEDSUPPLY Qty: 100 RF: 4 epinephrine 0.3 mg/0.3 mL auto-injector 0.3 ml SC ONCE PRN (Reason: anaphylaxis) Qty: 2 RF: 0 aspirin [Aspir-81] 81 MG tablet,delayed release (DR/EC) 81 mg PO DAILY Qty: 100 RF: 3 nitroglycerin 0.4 MG tablet, sublingual 0.3 mg Sublingual PRN RF: 0 metoprolol succinate 25 MG tablet extended release 24 hr 25 mg PO DAILY RF: 0 ONETOUCH ULTRA TEST STRIPS 1 EACH strip 1 ea Miscellaneous DAILY Qty: 90 RF: 3 (DME) lancets [OneTouch UltraSoft Lancets] misc 1 ea Miscellaneous DAILY Qty: 90 RF: 3 magnesium chloride [Mag 64] 64 mg tablet,delayed release (DR/EC) 64 mg PO DAILY PRNRF: 0 Discharge Instructions Activity:: OOB to chair Diet:: As Tolerated Discharge Orders Discharge Orders: Discharge Order (Routine); Ordered 03/08/20 Ordered By: Aimee Foley DS: Summary Status at Discharge Functional status at discharge: independent ambulation Overall status at discharge: patient is not back to baseline Mental Status: mental status grossly normal Speech and Movement: other (expressive/receptive aphasia) Mood: congruent mood Affect: anxious affect Exam Narrative Exam Narrative: General: pleasant male who appears younger than his stated age; A&Ox3, hard of hearing Neuro: A&Ox3, CN II - XII intact, sensory intact, 5/5 strength throughout on my exam, does have expressive aphasia; No receptive aphasia noted on my exam (but witnessed by nursing and neurology) HEENT: EOMI, MMM Heart: RRR, no m/r/g Lungs: CTAB Abdomen: soft, nontender, nondistended Extremities: no e/c/c BLE's Psych Mental Status: mental status grossly normal Speech and Movement: other (expressive/receptive aphasia) Mood: congruent mood Affect: anxious affect DS: Data Vitals/I&O Vitals and I&O: Vital Signs Temperature 36.8 C 03/08/20 13:15 Temperature Source Temporal Artery Scan 03/08/20 13:15 Pulse 55 L 03/08/20 16:35 Pulse 54 L 03/08/20 17:00 Respiratory Rate 13 03/08/20 17:00 Respiratory Effort Non-Labored 03/08/20 13:15 Respiratory Depth Normal 03/08/20 13:15 Respiratory Pattern Normal 03/08/20 13:15 Blood Pressure 150/60 H 03/08/20 16:35 Blood Pressure Mean 82 03/08/20 16:35 Blood Pressure Position Sitting 03/08/20 13:15 Pulse Oximetry 97 03/08/20 13:15 Oxygen Delivery Method Room Air 03/08/20 13:15 Oxygen Flow Rate 0 03/08/20 13:15 Pain Level 0 03/08/20 13:15 Intake & Output 03/07/20 03/08/20 03/08/20 23:59 11:59 23:59 Intake Total 60 / 60 1235.833 / 2235.833 1000.000 / 2235.833 Output Total 700 / 1125 425 / 1125 Balance 60 / 60 535.833 / 1110.833 575.000 / 1110.833 Weight 76.2 kg Intake: IV 995.833 / 5418.230 3759.000 / 1994.833 Oral 60 / 60 240 / 240 Output: Urine 700 / 1125 425 / 1125 Other: Urine Color Yellow Yellow Urine Appearance Clear Clear Urine Odor None Voiding Methods Urinal Urinal Data Completed and Pending Completed studies during hospitalization [Text1]: CT head w/o contrast 03/07/2020: 1. Area of decreased attenuation in the left temporal lobe. This may represent volume averaging through an adjacent sign. An acute infarct cannot be excluded. If there is continued concern, an MRI should be considered for further evaluation. 2. No other acute intracranial process. CXR 03/07/2020: No acute pulmonary findings. MRI brain w/w/o contrast 03/08/2020: Findings consistent with an acute left MCA distribution infarct. MRA brain : 1. Moderate narrowing of a left M2 segment of the left MCA. 2. Moderately severe narrowing of the A1 segment of the left MANNY. 3. Moderate narrowing of the anterior genu of the cavernous portion of the left ICA. US carotid 03/08/2020: 1. Marked velocity elevations in the left carotid artery system resulting in near occlusion of the left internal carotid artery. 2. Velocity elevations in the right internal carotid artery resulting in greater than 70 percent internal carotid artery stenosis. 3. Significant atherosclerotic disease in the neck, left greater than right. CTA head 03/08/2020: 1. No intracranial arterial occlusion or severe stenosis. 2. Other areas of intracranial arterial mild and moderate stenosis, as detailed above. 3. Redemonstration of left temporal and parietal lobe subacute infarcts, consistent with known left MCA territory infarcts as seen on prior MRI brain. Please refer to prior MRI brain for further details. CTA neck 03/08/2020: 1. Severe stenosis (greater than 90% by NASCET criteria) of the origin of the left internal carotid artery. 2. Severe stenosis of the origin of the left vertebral artery. 3. Approximately 65% stenosis of the proximal right ICA. 4. Long segment severe stenosis of the inferior aspect of the extracranial right vertebral artery. 5. Mild to moderate stenosis of the origin of the right subclavian artery. Echo 03/08/2020: Left Ventricle : The left ventricle is normal size. The left ventricular systolic function is normal. The left ventricular ejection fraction is within the normal range. There is normal left ventricular wall thickness. There is normal LV segmental wall motion. The left ventricular diastolic function is normal. LVEF is 60%. Right Ventricle : The right ventricle is normal size. The right ventricular systolic function is normal. The RVSP is 20.7 mmHg. Atria : Left atrium is mildly dilated. The right atrium size is normal. Aortic Valve : Aortic valve is thickened but has adequate excursion. Aortic valve is trileaflet. No hemodynamically significant valvular aortic stenosis. Mild to moderate aortic regurgitation. Mitral Valve : Mild mitral annular calcification. No evidence of mitral valve stenosis. Mild mitral regurgitation. Great Vessels : The aortic root is normal in size. The ascending aorta is mildly dilated. Aortic arch is not well visualized. IVC is normal in size and collapses >50% with inspiration. There is no prior stdy available for comparison. Labs on day of discharge: Labs from last 24 hours 03/08/20 03/08/20 03/08/20 17:25 06:08 06:08 APTT 24.7 Sodium 142 Potassium 3.6 Chloride 111 H Carbon Dioxide 21.5 Anion Gap 9.5 BUN 27 H Creatinine 1.27 Estimated GFR/1.73 m2 55.44 Glucose 139 H Hemoglobin A1c 6.8 H Calcium 7.9 L Magnesium 1.9 Troponin I 0.09 H* Triglycerides 91 Total Cholesterol 88 LDL Cholesterol, Calc 48 HDL Cholesterol 22 L Vitamin B12 343 COVID-19 PCR Nasopharyn COVID-19 PCR Ref Test Perform Site 03/07/20 03/07/20 18:45 18:13 APTT Sodium Potassium Chloride Carbon Dioxide Anion Gap BUN Creatinine Estimated GFR/1.73 m2 Glucose Hemoglobin A1c Calcium Magnesium Troponin I 0.16 H* Triglycerides Total Cholesterol LDL Cholesterol, Calc HDL Cholesterol Vitamin B12 COVID-19 PCR Negative Nasopharyn COVID-19 PCR Not Applicable Ref Test Perform Site [facility] Medical History Carpal tunnel syndrome (Acute) Coronary artery disease of [place] artery of [place] heart with stable angina pectoris (Acute 03/17/17) pos. stress [facility]. Treating medically. 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 Social History Smoking/Tobacco Use Status: Former Tobacco Use Alcohol Intake: current Alcohol Intake frequency: a few times a week Alcohol type: beer Drug use: Never Substance use type: does not use Caregiver/Support person: Yes Household members: spouse Communication Needs: None Do you need help understanding health information?: Never Pets and animals: Yes Pets and animals: cat(s), dog(s) and horse(s) Sexually active: Yes Do you think of yourself as: straight/heterosexual Current gender identity: male What is your relationship status?: How often do you talk on the phone with friends or family?: once per week How often do you get together with friends or relatives?: once per week How often do you attend presybeterian or restorationist services?: 1-3 times per year Do you belong to any clubs or organized social groups?: no Panel score (0-1 are the most socially isolated patients): 1 What type of physical activity do you participate in: none Tiffanie/Orthodoxy: No preference Special tiffanie needs: No Seatbelt use: always Drive intox or ride w/intox hack driver: No Do you feel safe at home: Yes Do you feel safe in your relationship?: Yes
[2020-03-08] MEDS: levETIRAcetam 1,000 MG in Normal Saline 100 ML 400 MG IVPB (19:57)
[2020-03-08] MEDS: Rosuvastatin 10 MG TAB 20 MG PO (20:05)
== END 2020-03-08 21:05 | disposition short-term general hospital (02) | DRG 65 ==
LOC: ER 19:17 → ICU 21:33
PROVIDERS: Internal Medicine; Admitting Provider General Practice; Emergency Provider Emergency Medicine; PCP Emergency Medicine; Visit Provider General Practice
DX: I63.233 Cerebral infarction due to unspecified occlusion or stenosis of bilateral carotid arteries (principal); C64.9 Malignant neoplasm of unspecified kidney, except renal pelvis; C78.00 Secondary malignant neoplasm of unspecified lung; C79.31 Secondary malignant neoplasm of brain; R47.01 Aphasia; I10 Essential (primary) hypertension; E11.9 Type 2 diabetes mellitus without complications; Z79.84 Long term (current) use of oral hypoglycemic drugs; I25.118 Atherosclerotic heart disease of native coronary artery with other forms of angina pectoris; E78.5 Hyperlipidemia, unspecified; Z87.891 Personal history of nicotine dependence; T39.016A Underdosing of aspirin, initial encounter; Z11.59 Encounter for screening for other viral diseases; I27.20 Pulmonary hypertension, unspecified; R74.9 Abnormal serum enzyme level, unspecified; I65.03 Occlusion and stenosis of bilateral vertebral arteries
CPT/HCPCS: 36415; 36416; 70496; 70498; 70544; 70553; 80048; 80053; 80061; 82962; 93005; 93306; 96360; 96361; 99222; 99223; 99233; 99285; 99291; U0003; 70450; 71046; 82607; 83036; 83735; 84484; 85025; 85730; 93010; 93880; 99218; 99284; G0378; J1644; J1953; J3490

== ENCOUNTER → 2020-03-08 08:20 | Outpatient (BNVA) | payer MEDICARE, BC, SELFPAY | PROVIDERS: PCP Emergency Medicine; Referring Provider Emergency Medicine; Visit Provider Psychiatry & Neurology Neurology | DX: R69 Illness, unspecified (principal) ==

== ENCOUNTER → 2020-04-25 09:35 | Outpatient (BNVA) | payer MEDICARE, BC, SELFPAY | PROVIDERS: PCP Emergency Medicine; Referring Provider Emergency Medicine; Visit Provider Psychiatry & Neurology Neurology | DX: I63.81 Other cerebral infarction due to occlusion or stenosis of small artery (principal); I10 Essential (primary) hypertension; Z98.890 Other specified postprocedural states; Z95.828 Presence of other vascular implants and grafts; I65.22 Occlusion and stenosis of left carotid artery; R47.01 Aphasia; E11.9 Type 2 diabetes mellitus without complications; Z95.9 Presence of cardiac and vascular implant and graft, unspecified; C64.9 Malignant neoplasm of unspecified kidney, except renal pelvis | CPT/HCPCS: 99215; 99354 ==

== ENCOUNTER 2021-01-25 20:53 | Outpatient (REF) | payer MEDICARE, BC, SELFPAY ==
[2021-01-25 21:35] LABS: Calculated LDL 189 mg/dL (<100); Cholesterol 251 mg/dL (<200); HDL Cholesterol 52 mg/dL (40-60); Triglyceride 50 mg/dL (<150)
== END 2021-01-25 20:54 | disposition home or self-care (01) ==
LOC: LBN 20:53
PROVIDERS: PCP Emergency Medicine; Visit Provider Emergency Medicine
DX: E78.5 Hyperlipidemia, unspecified (principal)
CPT/HCPCS: 80061

== ENCOUNTER 2021-01-28 16:29 | Outpatient (REF) | payer MEDICARE, BC, SELFPAY ==
[2021-01-28 15:19] LABS: Calculated LDL 177 mg/dL (<100); Cholesterol 246 mg/dL (<200); HDL Cholesterol 50 mg/dL (40-60); Triglyceride 99 mg/dL (<150)
== END 2021-01-28 16:30 | disposition home or self-care (01) ==
LOC: LBN 16:29
PROVIDERS: PCP Emergency Medicine; Visit Provider Nurse Practitioner Family
DX: E78.5 Hyperlipidemia, unspecified (principal)
CPT/HCPCS: 80061

== ENCOUNTER 2021-08-20 23:06 | Outpatient (REF) | payer MEDICARE, SELFPAY ==
[2021-08-20 19:40] LABS: Hemoglobin A1C 7.8 % (<5.7)
[2021-08-20 19:44] LABS: ALT 22 U/L (16-63); AST 11 U/L (15-37); Albumin 4.2 g/dL (3.4-5.0); Alkaline Phosphatase 64 U/L (46-116); Anion Gap 9.6 mmol/L (3-11); BUN 37 mg/dL (7-18); Bilirubin, Total 0.3 mg/dL (0.2-1.0); CO2 25.4 mmol/L (21.0-32.0); CREATININE 1.5 mg/dL (0.70-1.30); Calculated LDL 223 mg/dL (<100); Chloride 103 mmol/L (98-107); Cholesterol 307 mg/dL (<200); Estimated GFR 45.62 (mL/min/1.73m2); Glucose 215 mg/dL (74-106); HDL Cholesterol 43 mg/dL (40-60); Potassium 4.7 mmol/L (3.5-5.1); Sodium 138 mmol/L (136-145); Total Protein 7.6 g/dL (6.4-8.2); Triglyceride 209 mg/dL (<150)
== END 2021-08-20 23:07 | disposition home or self-care (01) ==
LOC: LBN 23:06
PROVIDERS: PCP Emergency Medicine; Visit Provider Family Medicine
DX: E11.9 Type 2 diabetes mellitus without complications (principal); E78.5 Hyperlipidemia, unspecified; I10 Essential (primary) hypertension; R79.89 Other specified abnormal findings of blood chemistry
CPT/HCPCS: 80053; 80061; 83036

== ENCOUNTER 2021-09-12 02:09 | Outpatient (CLI) | payer MEDICARE, SELFPAY ==
--- NOTE | 2021-09-12 11:20 | DI.MRI_ITS ---
Exam(s) MR LUMBAR SPINE WO EXAM: MR LUMBAR SPINE WO CLINICAL HISTORY: persistent right leg sciatica,suspect lower lumbar disc impingement rt,. TECHNIQUE: Multiplanar multisequence MRI of the Lumbar spine was performed. COMPARISON: No exams were available for comparison FINDINGS: Bones: The last intervertebral disc space is designated the L5/S1 level for the numbering purpose of this examination. The vertebral body heights are well maintained. Alignment is satisfactory. The si gnal characteristics are unremarkable. Cord: The conus tip ends at the T12-L1 level. It is of normal size and signal intensity. T12-L1: No disc herniations or bulges are present. No central spinal canal or neural foraminal stenos is. L1-2: There is a moderate size left paracentral disc herniation with extrusion posterior to the L1 ve rtebral body. There is left lateral recess stenosis with compression of the left L1 nerve root. The re are degenerative changes of the facets. There is mild narrowing of the central spinal canal. No central spinal canal or neural foraminal stenosis. L2-3: There is a mild diffuse disc bulge. No central spinal canal or neural foraminal stenosis. L3-4: No disc herniations or bulges are present. Degenerative changes of the facets. No significant central spinal canal stenosis.There is mild bilateral neural foraminal stenosis. L4-5: There is a diffuse disc bulge. There does appear to be mild pseudo spondylolisthesis of L4 on L5. Marked hypertrophic changes of the facets are noted. The findings result in moderately severe c entral spinal canal stenosis. There is marked right neural foraminal stenosis which appears to be du e to extension of the disc material laterally to the right. L5-S1: No disc herniations or bulges are present. Mild degenerative changes of the facets are seen.No significant central spinal canal or neural foraminal stenosis. Soft tissues: The visualized SI joints and sacrum are well maintained. The paraspinal soft tissues ar e unremarkable. There is a simple cyst in the right kidney. Visualized abdominal organs: Unremarkable. IMPRESSION: 1. At L4-L5 there is a diffuse disc bulge with extension laterally causing marked right neural forami nal stenosis. 2. Left paracentral disc herniation at L1-L2 with extrusion posterior to the L1 vertebral body. It a ppears to cause left lateral recess stenosis and compression of the left L1 and possibly L2 nerve korin ts. 3. Multilevel degenerative changes in the lumbar spine resulting in central spinal canal and neural f oraminal stenosis. The findings are most marked at the L4-L5 disc level. DATA REPOSITORY:
== END 2021-09-12 02:29 ==
LOC: DI 02:09
PROVIDERS: PCP Emergency Medicine; Visit Provider Family Medicine
DX: M51.17 Intervertebral disc disorders with radiculopathy, lumbosacral region; M47.26 Other spondylosis with radiculopathy, lumbar region; M48.061 Spinal stenosis, lumbar region without neurogenic claudication
CPT/HCPCS: 72148

== ENCOUNTER 2021-10-23 21:03 | Outpatient (REF) | payer MEDICARE, SELFPAY ==
[2021-10-25 12:35] LABS: COVID-19 RT-PCR UVMMC Result Positive (Negative)
== END 2021-10-23 21:04 | disposition home or self-care (01) ==
LOC: LBN 21:03
PROVIDERS: PCP Emergency Medicine; Visit Provider Nurse Practitioner Family
DX: Z20.822 Contact with and (suspected) exposure to COVID-19 (principal)
CPT/HCPCS: U0003; U0005

== ENCOUNTER 2022-01-31 11:52 | Emergency (ER) | payer MEDICARE, SELFPAY ==
[2022-01-31] VITALS (15 sets, daily range): BP systolic 135–192; BP diastolic 46–82; PULSE 55–68; RESP 10–23; TEMP 36.5–37; O2SAT 94–100
--- NOTE | 2022-01-31 11:45 | RT.EKG_ITS ---
APPROVED REPORT Exam: Resting ECG Reason for Exam: stroke Patient Location: E HR:64 bpm ECG Measurements Heart Rate 64 AXIS OR 235 P 2 QRSd 84 QRS 57 QT 426 T -38 QTc 440 Conclusion Sinus rhythm...normal P axis Prolonged OR interval. Borderline repol abnormality, diffuse leads...ST dep, T flat/neg, ant/lat/inf. Similar to previous
--- NOTE | 2022-01-31 12:00 | DI.RAD_ITS ---
Exam(s) XR CHEST 2V PA LATERAL EXAM: XR CHEST 2V PA LATERAL CLINICAL HISTORY: Ataxia TECHNIQUE: COMPARISON: CR,XR XR CHEST 2V PA LATERAL from 03/07/2020 FINDINGS: Diaphragm is mildly elevated on the right. Lungs are clear. No pleural effusion seen. Cardiac size within normal limits. IMPRESSION: No evidence of acute process. RADIATION DOSE DELIVERED: Total DLP
--- NOTE | 2022-01-31 12:04 | W.ED.GENAD ---
Discharge Plan Disposition Patient Disposition: HOME Condition: Stable Discharge Details Clinical Impression: Anemia, Dizziness Primary Care Provider: Tala Beaulieu ED Provider: Maya Arias Home Meds and New Rx's Prescriptions: New ferrous sulfate [iron] 325 mg (65 mg iron) tablet 325 mg PO DAILY 7 Days Qty: 7 0RF Rx Instructions: Please take one tablet daily for next 7 days with food. meclizine 25 mg tablet 25 mg PO DAILY PRN (Reason: dizziness) Qty: 10 0RF Continued amlodipine 5 mg tablet 5 mg PO DAILY Qty: 90 3RF ezetimibe [Zetia] 10 mg tablet 10 mg PO DAILY Qty: 90 3RF glimepiride 1 mg tablet 1 mg PO DAILY PRN (Reason: E11.9) Qty: 90 1RF methylprednisolone [Medrol (Joselito)] 4 mg tablets,dose pack See Rx Instructions PO PER PKG DIR Qty: 21 0RF Rx Instructions: PO PER PKG DIR, take as directed aspirin [Aspir-81] 81 MG tablet,delayed release (DR/EC) 81 mg PO DAILY Qty: 100 nitroglycerin 0.4 MG tablet, sublingual 0.3 mg Sublingual PRN ONETOUCH ULTRA TEST STRIPS 1 EACH strip 1 ea Miscellaneous DAILY Qty: 90 3RF (DME) lancets [OneTouch UltraSoft Lancets] misc 1 ea Miscellaneous DAILY Qty: 90 3RF Rx Instructions: test as directed epinephrine 0.3 mg/0.3 mL auto-injector 0.3 ml IM ONCE PRN (Reason: anaphylaxis) Qty: 2 0RF Rx Instructions: as a single dose then call 911; may repeat once losartan [Cozaar] 50 mg tablet 50 mg PO DAILY Qty: 90 3RF (DME) OneTouch Verio test strips Strip See Rx Instructions .ROUTE .MEDSUPPLY Qty: 100 6RF Rx Instructions: As directed once or twice daily benzonatate 100 mg capsule 100 mg PO TID PRN (Reason: cough) Qty: 30 0RF Mag 64 64 mg tablet,delayed release (DR/EC) 64 mg PO DAILY PRN Discharge Instructions Instructions: Dizziness (ED), Anemia (ED) Additional Instructions: At this time it has been determined that you are not having an acute stroke. You do have some anemia. Hemoglobin today is 9.0 hematocrit 28.6 this can be the cause for the dizziness and fatigue. Please take the iron tablet as directed and follow-up with primary care provider in the next week. Please return immediately to the emergency department if recurrent vomiting, worsening condition or any concerns. The iron may cause constipation and dark stools. Follow up with primary care provider in 3-5 days. Return to ED sooner if any worsening or concerns. Increase oral fluids. Referrals: Tala Beaulieu MD [Primary Care Provider] - 5 days Discharge Data Discharge Date/Time-TO BE ENTERED AT DEPARTURE: 01/31/22 19:03 Medical Decision Making <ERICA Patel - Last Filed: 01/31/22 16:19> This is a 76-year-old gentleman, complicated past medical history of CVA with mild residual symptoms, left common carotid stent placement, renal carcinoma, cataract surgery with eye evaluation today with dilatation of bilateral pupils presents to the ER for what he describes as sudden ataxia associated with nausea and vomiting, made worse with movement of his head that began sometime between 10 and 1030 shortly after his eye appointment. He denies history of vertigo. There is no obvious focal neurologic deficit. Plan is to obtain a stat head CT including a CTA of the brain and neck and initiate cardiac work-up. Stat CTA of neck and brain as well as brain CT unremarkable for acute process Laboratory values reveal no evidence of leukocytosis. Hemoglobin of 9.0 and hematocrit of 28.6, patient denies black tarry stools or bright red blood in his stools. Symptoms were rather sudden today so difficult to say that anemia is causing his symptoms. He is hemodynamically stable here in the ER. Likely outpatient evaluation, work-up, colonoscopy, etc. indicated for further evaluation of his anemia electrolytes unremarkable, creatinine 1.4 with a GFR of 49.41 glucose 204 troponin less than 50, COVID-negative. Given his ongoing symptoms, unremarkable CT, will obtain MRI. MRI unremarkable Patient remains symptomatic. We discussed admission but he would prefer to be discharged home. Will trial meclizine and reassess Meclizine provided and made no real difference in his symptoms. He later tells me that he feels as though his eyes are no longer dilated, at this time eye exam is unremarkable and he states that he feels like some of his symptoms were likely secondary to the dilatation of his pupils. His pupils are back to baseline and he remains symptomatic. At this time we will trial IV Valium and reassess. Patient and family tell me that they have plans tomorrow and that he would need to be out of the hospital by 8 AM, I let them know that unfortunately this is likely very unrealistic if he is ataxic and admitted to the hospital. This documentation was generated using [employer] dictation system, please disregard any oddities of phrase or misspellings. Medical Records Medical records reviewed: Yes I reviewed the patient's medical records. Imaging Data Radiologic Study: Attestation: I personally reviewed and interpreted this imaging study as follows: Imaging: X-Ray Radiologist's impression: Exam(s) XR CHEST 2V PA LATERAL EXAM: XR CHEST 2V PA LATERAL CLINICAL HISTORY: Ataxia TECHNIQUE: COMPARISON: CR,XR XR CHEST 2V PA LATERAL from 03/07/2020 FINDINGS: Diaphragm is mildly elevated on the right. Lungs are clear. No pleural effusion seen. Cardiac size within normal limits. IMPRESSION: No evidence of acute process. Radiologic Study #2: Attestation: I personally reviewed and interpreted this imaging study as follows: Imaging: CT Scan Radiologist's impression: Exam(s) CT BRAIN NECK CTA EXAM: CT BRAIN NECK CTA CLINICAL HISTORY: Ataxia TECHNIQUE: COMPARISON: CT CT BRAIN NECK CTA from 03/08/2020 FINDINGS: CT angiography of the cervical cranial region was performed with intravenous infusion of 85 cc of Omnipaque 350. Images obtained through the lung apices are unremarkable. Tracheolaryngeal structures appear intact. No cervical mass or adenopathy. 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 No evidence of acute intracranial hemorrhage on noncontrast study. Examination is compared with prior CT angiogram of March 08, 2020. Note is again made of a diminutive right vertebral artery, unchanged from prior study. Left vertebral artery has a near occlusion at its stenosis, unchanged from prior study. No additional vertebral lesion identified. The common carotid arteries show mild atheromatous change bilaterally. There is an apparent left bifurcation carotid stent. There is moderate to severe narrowing of the luminal diameter of the visualized lumen of the stent. There is near occlusion proximal right internal carotid artery. Remainder of right ICA extracranial appears intact. Moderate to severe stenoses of both cavernous internal carotid arteries noted. No focal intracranial new lesion identified. Note is again made of moderate stenosis of the A1 segment of left anterior cerebral artery. No change from prior examination. 5 minutes delayed images show no enhancing lesion or mass lesion of the brain. IMPRESSION: Stable appearance of multiple areas of atherosclerotic disease throughout the extra and intracranial circulation as described above. In comparison with prior examination of 2019, there is increased stenosis at the origin of the right internal carotid artery and there is interval placement of a left ICA stent which appears patent with moderate stenosis. No new intracranial lesion identified. Radiologic Study #3: Attestation: I personally reviewed and interpreted this imaging study as follows: Imaging: MRI Radiologist's impression: Exam(s) MR BRAIN WO EXAM: MR BRAIN WO CLINICAL HISTORY: ataxia. TECHNIQUE: Multiplanar multisequence MRI was performed. COMPARISON: MR MR BRAIN WO/W from 03/08/2020 FINDINGS: MR examination of brain was performed according to the usual protocol. Note is made of old left hemisphere infarcts as seen on prior examinations. There are a couple of questionable areas of increased signal new since prior examination on T2 weighted and FLAIR images adjacent to the lateral ventricles. These are nonspecific and do not appear to be associated with acute infarction. No other significant signal abnormality seen which is new. Diffusion-weighted imaging shows no evidence of acute or subacute infarction. Susceptibility weighted imaging shows no evidence of acute intracranial hemorrhage. The orbital and temporal bone structures appear intact. There is normal flow void in the [id number] vasculature. IMPRESSION: The appearance of the brain MRI is fairly stable since prior examination of February 2020. No new evidence of acute or subacute cerebral infarction. Lab Data Lab results reviewed: Yes I reviewed the patient's lab results. Labs: Laboratory Tests Range/Units 01/31/22 01/31/22 01/31/22 12:04 12:04 12:59 WBC (4.4-10.8) 10^3/uL 6.69 RBC (4.36-5.78) 10^6/uL 3.19 L Hgb (13.5-17.5) g/dL 9.0 L Hct (40.0-50.0) % 28.6 L MCV (80-95) fL 90 MCH (27.0-33.0) pg 28.2 MCHC (32.0-36.0) % 31.5 L RDW (11.8-14.1) % 13.9 Plt Count (130-400) 10^3/uL 253 MPV (8.0-11.0) fL 9.5 Immature Gran % 0.4 Neutrophils % 59.6 Lymphocytes % 23.0 Monocytes % 12.6 Eosinophils % 4.0 Basophils % 0.4 Nucleated RBC % (0.0-0.3) % 0.0 Absolute Neutrophils (1.2-6.7) 10^3/uL 3.98 Absolute Lymphocytes (1.2-3.4) 10^3/uL 1.54 Absolute Monocytes (0.1-0.8) 10^3/uL 0.84 H Absolute Eosinophils (0.0-0.7) 10^3/uL 0.27 Absolute Basophils (0.0-0.2) 10^3/uL 0.03 Sodium (136-145) mmol/L 141 Potassium (3.5-5.1) mmol/L 4.3 Chloride (98-107) mmol/L 107 Carbon Dioxide (21.0-32.0) mmol/L 24.7 Anion Gap (3-11) mmol/L 9.3 BUN (7-18) mg/dL 19 H Creatinine (0.70-1.30) mg/dL 1.4 H Estimated GFR/1.73 m2 (mL/min/1.73m2) 49.41 Glucose (74-106) mg/dL 204 H Calcium (8.5-10.1) mg/dL 8.5 Magnesium (1.8-2.4) mg/dL 2.3 Total Bilirubin (0.2-1.0) mg/dL 0.4 AST (15-37) U/L 11 L ALT (16-63) U/L 16 Alkaline Phosphatase (46-116) U/L 56 Troponin I (<or=60) ng/L < 50 Total Protein (6.4-8.2) g/dL 7.3 Albumin (3.4-5.0) g/dL 3.7 COVID-19 Source Nasal/Nares SARS-CoV-2 (PCR) (Negative) Negative ECG Data Attestation: I personally reviewed and interpreted this ECG (s) as follows: Interpretation: Please see official report by Dr. Zapien. Sinus rhythm, ventricular rate of 64. Diffuse nonspecific ST-T wave abnormalities which were present on previous EKG. No STEMI. <Maya Arias NP - Last Filed: 01/31/22 23:06> This is a 76-year-old gentleman, complicated past medical history of CVA with mild residual symptoms, left common carotid stent placement, renal carcinoma, cataract surgery with eye evaluation today with dilatation of bilateral pupils presents to the ER for what he describes as sudden ataxia associated with nausea and vomiting, made worse with movement of his head that began sometime between 10 and 1030 shortly after his eye appointment. He denies history of vertigo. There is no obvious focal neurologic deficit. Plan is to obtain a stat head CT including a CTA of the brain and neck and initiate cardiac work-up. Stat CTA of neck and brain as well as brain CT unremarkable for acute process Laboratory values reveal no evidence of leukocytosis. Hemoglobin of 9.0 and hematocrit of 28.6, patient denies black tarry stools or bright red blood in his stools. Symptoms were rather sudden today so difficult to say that anemia is causing his symptoms. He is hemodynamically stable here in the ER. Likely outpatient evaluation, work-up, colonoscopy, etc. indicated for further evaluation of his anemia electrolytes unremarkable, creatinine 1.4 with a GFR of 49.41 glucose 204 troponin less than 50, COVID-negative. Given his ongoing symptoms, unremarkable CT, will obtain MRI. MRI unremarkable Patient remains symptomatic. We discussed admission but he would prefer to be discharged home. Will trial meclizine and reassess Meclizine provided and made no real difference in his symptoms. He later tells me that he feels as though his eyes are no longer dilated, at this time eye exam is unremarkable and he states that he feels like some of his symptoms were likely secondary to the dilatation of his pupils. His pupils are back to baseline and he remains symptomatic. At this time we will trial IV Valium and reassess. Patient and family tell me that they have plans tomorrow and that he would need to be out of the hospital by 8 AM, I let them know that unfortunately this is likely very unrealistic if he is ataxic and admitted to the hospital. This documentation was generated using [employer] system, please disregard any oddities of phrase or misspellings. 1645: SJ: Care assumed from provider (Rivas MALDONADO) Please see their initial HPI, PE, and documentation. Discussed patient details and case and pending re-evaluation and disposition. Patient is hemodynamically stable, and alert and oriented. At the time of signout awaiting reassessment. 1650: Patient is using urinal, significant other at BS, 1736: Discussed at length with patient and family the results of lab work imaging and discussion with either admission or discharge to home. Rectal exam performed, guaiac negative. Discussed the anemia with an H&H of 9 and 28.6 which says that is a new finding and she has never been told of anemia. She does report that he has a low iron diet which could attribute to the anemia. Will road test patient with assistance he would prefer to go home. At this time CVA has been ruled out by MRI, CT and CTA, patient does report increased fatigue. 1745: Patient was able to walk with assistance approximately 5 feet and then became dizzy. He reports he is moving better than when he got here and overall feeling somewhat better. Iron studies added onto labs. I did discuss follow-up with patient. Iron 325 mg p.o. ordered. is requesting for patient to be able to sleep here for an hour she will go home and attend some errands and then she will come back and we will decide on the admission. At this time due to department capacity, it is not a possibility, ultimately patient and family opted to be discharged home. I did discuss strict return instructions and follow-up care. A prescription for Iron supplements written. HPI <ERICA Patel - Last Filed: 01/31/22 16:19> General Mode of arrival: wheelchair. Date/Time Provider Initiated Documentation: 01/31/22 11:53. Limitations to Documentation: no limitations. Information obtained by: patient and family. History of Present Illness 76 year old M presents to the emergency department with the chief complaint of Ataxia, described as moderate, with intensity rated at 6. Quality is described as other (Off balance, no pain), and is localized to the head. Patient reports no radiation. Patient started experiencing this hour(s) (2) and it has been constant. No relieving factors improve symptom(s), Other factors that worsen symptoms (Movement of his head) . Patient notes nausea/vomiting. Patient did receive the following treatments prior to arrival, none HPI Narrative: This is a 76-year-old gentleman, past medical history of anxiety, left common carotid artery stent placement, CVA with mild residual expressive aphasia and generalized weakness, vertebral artery stenosis, hypertension, diabetes, malignant neoplasm of the kidney, presenting to the ER for ataxia and concern of stroke. Patient reports that this morning he felt asymptomatic, went to his scheduled eye appointment and his eyes were dilated for this evaluation. He had cataract surgery 1 year ago. He states that when leaving the eye appointment he felt dizzy but describes this as off balance like he did fall, not like the room was spinning. Subsequently developed nausea and vomiting. He denies recent illness or trauma, headache, visual change, neck pain, chest pain, shortness of breath, abdominal pain, numbness, tingling, weakness, change in bowel or bladder function. Related Data Home Medications Medication Instructions Recorded Confirmed aspirin 81 mg tablet,delayed 81 mg PO DAILY #100 tab-caps 01/20/17 11/14/21 release (Aspir-) nitroglycerin 0.4 mg sublingual 0.3 mg sublingual PRN 02/03/17 11/14/21 tablet magnesium chloride 64 mg 64 mg PO DAILY PRN 02/15/19 11/14/21 (magnesium chloride) tablet,delayed release (Mag 64) lancets (NostoTouch UltraSoft #90 ea 02/16/19 11/14/21 Lancets) epinephrine 0.3 mg/0.3 mL 0.3 ml IM ONCE PRN anaphylaxis #2 03/12/20 11/14/21 injection, auto-injector ea amlodipine 5 mg tablet 5 mg PO DAILY #90 tabs 05/21/21 11/14/21 losartan 50 mg tablet (Cozaar) 50 mg PO DAILY #90 tab-caps 06/07/21 11/14/21 ezetimibe 10 mg tablet (Zetia) 10 mg PO DAILY #90 tabs 07/16/21 11/14/21 methylprednisolone 4 mg tablets in See Rx Instructions PO PER PKG DIR 08/12/21 11/14/21 a dose pack (Medrol (Joselito)) #21 dose pk blood sugar diagnostic (NostoTouch #100 ea 09/18/21 11/14/21 Verio test strips) benzonatate 100 mg capsule 100 mg PO TID PRN cough #30 caps 10/25/21 11/14/21 glimepiride 1 mg tablet 1 mg PO DAILY PRN E11.9 #90 tabs 11/14/21 11/14/21 ferrous sulfate 325 mg (65 mg 325 mg PO DAILY 7 days #7 tabs 01/31/22 iron) tablet (iron) meclizine 25 mg tablet 25 mg PO DAILY PRN dizziness #10 01/31/22 tabs Previous Rx's Medication Instructions Recorded lancets (OneTouch UltraSoft #90 ea 02/16/19 Lancets) epinephrine 0.3 mg/0.3 mL 0.3 ml IM ONCE PRN anaphylaxis #2 03/12/20 injection, auto-injector ea amlodipine 5 mg tablet 5 mg PO DAILY #90 tabs 05/21/21 losartan 50 mg tablet (Cozaar) 50 mg PO DAILY #90 tab-caps 06/07/21 ezetimibe 10 mg tablet (Zetia) 10 mg PO DAILY #90 tabs 07/16/21 methylprednisolone 4 mg tablets in See Rx Instructions PO PER PKG DIR 08/12/21 a dose pack (CrystalCommercerol (Joselito)) #21 dose pk blood sugar diagnostic (OneTouch #100 ea 09/18/21 Verio test strips) benzonatate 100 mg capsule 100 mg PO TID PRN cough #30 caps 10/25/21 glimepiride 1 mg tablet 1 mg PO DAILY PRN E11.9 #90 tabs 11/14/21 ferrous sulfate 325 mg (65 mg 325 mg PO DAILY 7 days #7 tabs 01/31/22 iron) tablet (iron) meclizine 25 mg tablet 25 mg PO DAILY PRN dizziness #10 01/31/22 tabs Allergies Allergy/AdvReac Type Severity Reaction Status Date / Time atorvastatin [From Lipitor] AdvReac Severe sweating, Verified 11/14/21 10:59 sick to stomach rosuvastatin [From Crestor] AdvReac Intermediate speech Unverified 11/14/21 10:59 problems metformin AdvReac Mild DIARRHEA Verified 11/14/21 10:59 hornet venom AdvReac Swelling/Ed Verified 11/14/21 10:59 edna tape AdvReac Mild Skin Rash Uncoded 11/14/21 10:59 General DIANNE: 2 Review of Systems <ERICA Patel - Last Filed: 01/31/22 16:19> Constitutional Constitutional: Denies fatigue, Denies fever(s), Denies headache(s) and Reports weakness (Generalized) Eyes Eyes: Denies change in vision ENT Ears, Nose, Mouth, and Throat: Denies vertigo, Reports dizziness (Off balance, ataxia), Denies headache(s) and Denies neck pain Cardiovascular Cardiovascular: Denies chest pain and Denies dyspnea Respiratory Respiratory: Denies cough and Denies dyspnea Gastrointestinal Gastrointestinal: Denies abdominal pain, Denies melena, Denies hematochezia, Reports nausea and Reports vomiting Genitourinary Genitourinary: Denies dysuria Musculoskeletal Musculoskeletal: Denies back pain and Denies neck pain Integumentary/Breasts Skin/Breast: Denies rash Neurologic Neurologic: Denies vertigo, Reports dizziness (Off balance, ataxia), Denies headache(s) and Reports weakness (Generalized) Endocrine Endocrine: Denies fatigue Hematologic/Lymphatic Hematologic/Lymphatic: Denies easy bleeding and Denies easy bruising PFSH <ERICA Patel - Last Filed: 01/31/22 16:19> All Active Problems (Updated 01/31/22 @ 18:35 by Maya Arias NP) Anemia (Chronic) Dizziness (Acute) COVID-19 (Acute) Low back pain with right-sided sciatica (Acute) Chronic kidney disease, stage 3 (Acute) 08/2021-cr 1.5 Sciatica (Acute) Anxiety (Chronic) Skin infection (Acute) 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 Left carotid stenting. left MCA Vertebral artery stenosis (Acute) Left carotid stenosis (Acute) Carotid stenosis (Acute) Acute ischemic left MCA stroke (Acute) Expressive aphasia (Acute) Carpal tunnel syndrome (Acute) Hypertension (Acute) Coronary artery disease of [place] artery of [place] heart with stable angina pectoris (Acute 03/17/17) [place]. [place] [facility] [place] [facility] [place]. 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 Social History Smoking/Tobacco Use Status: Former Tobacco Use Smoking risk assessment performed?: Yes Alcohol Intake: current Alcohol Intake frequency: a few times a week Alcohol type: beer Drug use: Never Substance use type: does not use Caregiver/Support person: Yes Household members: spouse Communication Needs: None Do you need help understanding health information?: Never Pets and animals: Yes Pets and animals: cat(s), dog(s) and horse(s) Sexually active: Yes Do you think of yourself as: straight/heterosexual Current gender identity: male What is your relationship status?: How often do you talk on the phone with friends or family?: once per week How often do you get together with friends or relatives?: once per week How often do you attend gnosticist or rastafari services?: 1-3 times per year Do you belong to any clubs or organized social groups?: no Panel score (0-1 are the most socially isolated patients): 1 What type of physical activity do you participate in: none Tiffanie/Samaritan: No preference Special tiffanie needs: No Seatbelt use: always Drive intox or ride w/intox truck driver instructor: No Do you feel safe at home: Yes Do you feel safe in your relationship?: Yes Exam <ERICA Patel - Last Filed: 01/31/22 16:19> Const General: cooperative, healthy appearing and no acute distress Orientation: alert, awake and oriented x3 HENMT Head: normal to inspection, normocephalic and atraumatic Ears: external ears normal, TM's normal bilaterally and EAC's normal General nose exam: external nose normal Face and sinus: normal facial exam Mouth: moist mucous membranes Throat: posterior oropharynx normal Eyes Alignment and Position: alignment normal Periorbital: periorbital findings normal Eyelids: eyelids normal Conjunctivae: conjunctivae normal Sclera: sclerae normal Cornea: corneas normal EOM: EOM intact bilaterally Other: Bilateral pupil dilatation, difficult to know if this is a neurological deficit or status post his recent eye examination and dilatation. No nystagmus Neck Neck: normal visual inspection, full ROM, trachea midline, supple and nontender Resp Effort & Inspection: normal respiratory effort and able to speak in complete sentences Auscultation: clear to auscultation bilaterally Cardio Rate: regular rate Rhythm: regular rhythm GI Palpation: soft, not firm, no guarding, no pulsatile masses and nontender Auscultation: normal bowel sounds Back/Spine/Pelvis Back: No back tenderness Skin General skin exam: no rashes or lesions noted Neuro General: patient alert, patient awake, patient oriented x3, moves all extremities and no focal motor deficits Cognition: normal cognition Speech: expressive aphasia (Minimal, baseline per patient and family) Gait: other (Not tested) Motor: muscle tone normal throughout, strength 5/5 throughout, no movement abnormalities noted and no fasciculations Sensory Exam: no sensory deficits noted Extrem General: normal to inspection, full ROM, capillary refill normal, no pedal edema and no calf tenderness Psych Appearance: grossly normal Mental Status: mental status grossly normal Sign Out <ERICA Patel - Last Filed: 01/31/22 16:19> Sign Out Data: Sign Out Comment: Sudden ataxia between 10 and 10:30 AM after eye examination with dilation of his pupils. CT, CTA, MRI all unremarkable. Patient given meclizine and remains symptomatic. Recommended admission but declines at this time. Plan is to provide IV Valium, and then reassess. Delta troponin is pending. Last updated by Rivas Santos PA at 01/31/22 16:18
[2022-01-31 12:10] LABS: Abs Immature Grans 0.03 10^3/uL (0.0-0.06); Absolute Basophil Count 0.03 10^3/uL (0.0-0.2); Absolute Eosinophil Count 0.27 10^3/uL (0.0-0.7); Absolute Lymphocyte Count 1.54 10^3/uL (1.2-3.4); Absolute Monocyte Count 0.84 10^3/uL (0.1-0.8); Absolute Neutrophil Count 3.98 10^3/uL (1.2-6.7); Basophils % 0.4; HCT 28.6 % (40.0-50.0); Immature Grans % 0.4; MCH 28.2 pg (27.0-33.0); MCHC 31.5 % (32.0-36.0); MCV 90 fL (80-95); MPV 9.5 fL (8.0-11.0); Monocytes % 12.6; Neutrophils % 59.6; Platelet Count 253 10^3/uL (130-400); RBC 3.19 10^6/uL (4.36-5.78); RDW 13.9 % (11.8-14.1); RDW-SD 45.4 fL; WBC 6.69 10^3/uL (4.4-10.8)
[2022-01-31] MEDS: Ondansetron 4 MG/2 ML VIAL (12:15)
[2022-01-31 12:26] LABS: ALT 16 U/L (16-63); AST 11 U/L (15-37); Albumin 3.7 g/dL (3.4-5.0); Alkaline Phosphatase 56 U/L (46-116); Anion Gap 9.3 mmol/L (3-11); BUN 19 mg/dL (7-18); Bilirubin, Total 0.4 mg/dL (0.2-1.0); CO2 24.7 mmol/L (21.0-32.0); CREATININE 1.4 mg/dL (0.70-1.30); Calcium 8.5 mg/dL (8.5-10.1); Chloride 107 mmol/L (98-107); Estimated GFR 49.41 (mL/min/1.73m2); Glucose 204 mg/dL (74-106); Magnesium 2.3 mg/dL (1.8-2.4); Potassium 4.3 mmol/L (3.5-5.1); Sodium 141 mmol/L (136-145); Total Protein 7.3 g/dL (6.4-8.2); Troponin I < 50 ng/L (<or=60)
--- NOTE | 2022-01-31 12:45 | DI.CT_ITS ---
Exam(s) CT BRAIN NECK CTA EXAM: CT BRAIN NECK CTA CLINICAL HISTORY: Ataxia TECHNIQUE: COMPARISON: CT CT BRAIN NECK CTA from 03/08/2020 FINDINGS: CT angiography of the cervical cranial region was performed with intravenous infusion of 85 cc of Omn ipaque 350. Images obtained through the lung apices are unremarkable. Tracheolaryngeal structures a ppear intact. No cervical mass or adenopathy. 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 No evidence of acute intracran ial hemorrhage on noncontrast study. Examination is compared with prior CT angiogram of March 08, 2020. Note is again made of a diminutive right vertebral artery, unchanged from prior study. Left vertebra l artery has a near occlusion at its stenosis, unchanged from prior study. No additional vertebral l esion identified. The common carotid arteries show mild atheromatous change bilaterally. There is an apparent left bif urcation carotid stent. There is moderate to severe narrowing of the luminal diameter of the visuali zed lumen of the stent. There is near occlusion proximal right internal carotid artery. Remainder o f right ICA extracranial appears intact. Moderate to severe stenoses of both cavernous internal matthews tid arteries noted. No focal intracranial new lesion identified. Note is again made of moderate stenosis of the A1 segme nt of left anterior cerebral artery. No change from prior examination. 5 minutes delayed images show no enhancing lesion or mass lesion of the brain. IMPRESSION: Stable appearance of multiple areas of atherosclerotic disease throughout the extra and intracranial circulation as described above. In comparison with prior examination of 2019, there is increased edward nosis at the origin of the right internal carotid artery and there is interval placement of a left IC A stent which appears patent with moderate stenosis. No new intracranial lesion identified. RADIATION DOSE DELIVERED: 2,459.54mGy.cm Total DLP !Error CTDIvol RADIATION OPTIMIZATION: All CT scans at this facility use at least one of these dose optimization te chniques: automated exposure control; mA and/or kV adjustment per patient size (includes targeted exa ms where dose is matched to clinical indication); or iterative reconstruction.
[2022-01-31] MEDS: Omnipaque 350 MG/ML 100 ML BTL 85 ML IJ (13:02)
[2022-01-31 13:04] LABS: Source Nasal/Nares
--- NOTE | 2022-01-31 13:15 | DI.MRI_ITS ---
Exam(s) MR BRAIN WO EXAM: MR BRAIN WO CLINICAL HISTORY: ataxia. TECHNIQUE: Multiplanar multisequence MRI was performed. COMPARISON: MR MR BRAIN WO/W from 03/08/2020 FINDINGS: MR examination of brain was performed according to the usual protocol. Note is made of old left hemisphere infarcts as seen on prior examinations. There are a couple of qu estionable areas of increased signal new since prior examination on T2 weighted and FLAIR images jovan cent to the lateral ventricles. These are nonspecific and do not appear to be associated with acute infarction. No other significant signal abnormality seen which is new. Diffusion-weighted imaging s hows no evidence of acute or subacute infarction. Susceptibility weighted imaging shows no evidence of acute intracranial hemorrhage. The orbital and temporal bone structures appear intact. There is normal flow void in the [place] vasculature. IMPRESSION: The appearance of the brain MRI is fairly stable since prior examination of February 2020. No new eviden ce of acute or subacute cerebral infarction. DATA REPOSITORY:
[2022-01-31 13:54] LABS: COVID-19 PCR Negative (Negative)
[2022-01-31] MEDS: Meclizine 25 MG TAB PO (14:29)
[2022-01-31] MEDS: diazePAM 10 MG/2 ML SYR 5 MG IVP (15:27)
[2022-01-31 16:34] LABS: Troponin I < 50 ng/L (<or=60)
[2022-01-31] MEDS: Ferrous Sulfate 325 MG TAB PO (17:50)
[2022-01-31 18:07] LABS: Bilirubin Negative (Negative); Blood Negative (Negative); Clarity Clear (Clear); Glucose 250 mg/dL (Negative); Ketones Negative (Negative); Leukocyte Esterase Negative (Negative); Nitrite Negative (Negative); Specific Gravity 1.015 (1.005-1.025); Urobilinogen 0.2 EU/dL (Up TO 0.2)
[2022-01-31 18:36] LABS: Iron 16 ug/dL (65-175); Total Iron Binding Capacity 388 ug/dL (250-450); Transferrin Sat 4 % (20-55)
--- NOTE | 2022-01-31 18:37 | NUR.NOTE ---
Nursing Note: PT INFO FAXED TO PT PCP TO BE SEEN [facility] FOR ANEMIA. FABRIZIO, ED
== END 2022-01-31 19:03 | disposition home or self-care (01) ==
PROVIDERS: Physician Assistant; Emergency Provider Registered Nurse Emergency; PCP Family Medicine
DX: D64.9 Anemia, unspecified (principal); R27.0 Ataxia, unspecified; Z86.73 Personal history of transient ischemic attack (TIA), and cerebral infarction without residual deficits; Z20.822 Contact with and (suspected) exposure to COVID-19
CPT/HCPCS: 36415; 36416; 70496; 70498; 80053; 82962; 87635; 93005; 96374; 96375; 99284; 99285; 70551; 71046; 81003; 83540; 83550; 83735; 84484; 85025; 93010; J2405; J3360; J3490

== ENCOUNTER 2022-03-13 15:37 | Outpatient (CLI) | payer MEDICARE, SELFPAY ==
[2022-03-13 15:45] LABS: HCT 31.3 % (40.0-50.0); MCH 29.4 pg (27.0-33.0); MCHC 31.9 % (32.0-36.0); MCV 92 fL (80-95); MPV 9.6 fL (8.0-11.0); Platelet Count 198 10^3/uL (130-400); RDW 19.2 % (11.8-14.1); RDW-SD 64.8 fL; WBC 5.52 10^3/uL (4.4-10.8)
[2022-03-13 16:35] LABS: COMMENT (LAB VIEW ONLY) 221.87 mg/dL; Microalb ug/mg Crea 11.4 ug/mg Cr
== END 2022-03-13 15:38 | disposition home or self-care (01) ==
LOC: LBO 15:39
PROVIDERS: PCP Family Medicine; Visit Provider Family Medicine
DX: E11.9 Type 2 diabetes mellitus without complications (principal); D64.9 Anemia, unspecified
CPT/HCPCS: 36415; 85027; 82043; 82570

== ENCOUNTER 2022-06-27 10:35 | Outpatient (CLI) | payer MEDICARE, SELFPAY ==
--- NOTE | 2022-06-27 10:30 | RT.EKG_ITS ---
APPROVED REPORT Exam: Resting ECG Reason for Exam: shortness of breath on exertion Patient Location: O HR:54 bpm ECG Measurements Heart Rate 54 AXIS [place] 251 P 44 QRSd 93 QRS 65 QT 447 T 40 QTc 424 Conclusion Sinus rhythm...normal P axis, V-rate 50- 99 Prolonged NY interval...NY >220, V-rate 50- 90
== END 2022-06-27 10:36 | disposition home or self-care (01) ==
LOC: DI.CM 10:36
PROVIDERS: PCP Family Medicine; Visit Provider Family Medicine
DX: I20.9 Angina pectoris, unspecified (principal)
CPT/HCPCS: 93010

== ENCOUNTER 2022-06-27 10:51 | Outpatient (CLI) | payer MEDICARE, SELFPAY ==
[2022-06-27 12:14] LABS: Abs Immature Grans 0.02 10^3/uL (0.0-0.06); Absolute Basophil Count 0.02 10^3/uL (0.0-0.2); Absolute Eosinophil Count 0.35 10^3/uL (0.0-0.7); Absolute Lymphocyte Count 0.95 10^3/uL (1.2-3.4); Absolute Monocyte Count 0.57 10^3/uL (0.1-0.8); Absolute Neutrophil Count 2.71 10^3/uL (1.2-6.7); Basophils % 0.4; Eosinophils % 7.6; HCT 27.7 % (40.0-50.0); HGB 8.7 g/dL (13.5-17.5); Immature Grans % 0.4; Lymphocytes % 20.6; MCH 27.4 pg (27.0-33.0); MCHC 31.4 % (32.0-36.0); MCV 87 fL (80-95); MPV 10.2 fL (8.0-11.0); Monocytes % 12.3; Neutrophils % 58.7; Platelet Count 238 10^3/uL (130-400); RBC 3.17 10^6/uL (4.36-5.78); RDW 16.9 % (11.8-14.1); RDW-SD 54.1 fL; WBC 4.62 10^3/uL (4.4-10.8)
[2022-06-27 12:52] LABS: ALT 16 U/L (16-63); AST 21 U/L (15-37); Albumin 3.7 g/dL (3.4-5.0); Alkaline Phosphatase 51 U/L (46-116); Anion Gap 8.6 mmol/L (3-11); BUN 22 mg/dL (7-18); Bilirubin, Total 0.4 mg/dL (0.2-1.0); CO2 23.4 mmol/L (21.0-32.0); CREATININE 1.4 mg/dL (0.70-1.30); Calcium 8.8 mg/dL (8.5-10.1); Calculated LDL 124 mg/dL (<100); Chloride 105 mmol/L (98-107); Cholesterol 192 mg/dL (<200); Estimated GFR 52.09 (mL/min/1.73m2); Glucose 172 mg/dL (74-106); HDL Cholesterol 56 mg/dL (40-60); Potassium 4.5 mmol/L (3.5-5.1); Sodium 137 mmol/L (136-145); Total Protein 7.2 g/dL (6.4-8.2); Triglyceride 64 mg/dL (<150)
[2022-06-27 12:58] LABS: Hemoglobin A1C 7.3 % (<5.7)
== END 2022-06-27 10:52 | disposition home or self-care (01) ==
LOC: LOS 10:52
PROVIDERS: PCP Family Medicine; Referring Provider Family Medicine; Visit Provider Family Medicine
DX: D64.9 Anemia, unspecified (principal); E11.9 Type 2 diabetes mellitus without complications
CPT/HCPCS: 36415; 80053; 80061; 83036; 85025

== ENCOUNTER → 2022-07-08 00:59 | Outpatient (CLI) | payer MEDICARE, SELFPAY ==
--- NOTE | 2022-07-08 07:00 | DI.NM_ITS ---
APPROVED REPORT Exam: Pharmacologic Patient Location: Out-Patient Room/Bed: Stress Nurse: Dai Valerio RN Ordering Provider:JUDY TORRE MD, Contact Number: [phone] BMI: 25.84 Baseline Rhythm: Sinus Rhythm, 1DHB Comment: Baseline ST abnormalities inf/lat leads Indications: Burning of body with exertion, angina, fatigue, diabetes, h/o tia Medical History Medical History: Hypertension, hyperlipidemia, T2 diabetes, aphasia, anxiety, CKD, CAD, stent (caroti d artery), stroke, angina, anemia, heart murmur Cardiac Medications: Nitroglycerin, losartan, ezetimibe, aspirin, amlodipine, epi pen, ferrous sulfat e Allergies: Atorvastatin, rosuvastatin, tape, hornet venom Cardiac Risk Factors: Hypertension, hyperlipiemia, diabetes, former smoker, PVD, family hx Previous Cardiac Procedures: Stent L carotid artery (2017) Pretest Chest Pain Characteristics: None Exercise History: Sedentary Physical Disabilities: Exercise intolerance Lung Sounds: Clear to auscultation Heart Sounds: Murmur Stress Test Details Test: Pharmacologic stress was paired with low level exercise. Reason for pharmacologic stress test: physical limitation. Nuclear Acquisition: Rest Tc-99m/Stress Tc-99m 1 day Rest Isotope: Tc-99m Sestamibi. Dose: 9.5 Date: 07/08/2022 Injection Time: 0930 Stress Isotope: Tc-99m Sestamibi. Dose: 30.0 Date: 07/08/2022 Injection Time: 1111 HR Resting HR Supine: 62 bpm Max Heart Rate (APMHR): 144.983347 bpm Resting HR Standin bpm Target HR (85% APMHR): 122.677300 bpm Max HR Achieved: 99 bpm % of APMHR: 68.75 Recovery HR: 63 bpm BP Resting BP Supine: 132/62 mmHg Resting BP Standin/54 mmHg Max BP: 134/54 mmHg Recovery BP: 110/58 mmHg BP response to stress: Hypotensive response to stress. ECG Resting ECG: Sinus Rhythm, 1DHB Ectopy: None Comment: Baseline ST abnormalities inf/lat leads Stress ECG: Sinus Rhythm, 1DHB ST Change: Horizontal ST depression, Downsloping ST depression, Lead(s): inf, lat Maximum ST Deviation: 2-3 mm Arrhythmia: None Recovery ECG: Sinus Rhythm, 1DHB Recovery ST Change: Horizontal ST depression, Downsloping ST depression Lead(s): inf/lat Recovery Arrhythmia: None Comment: ST depressions resolved back to baseline ST abnormalities by minute 12 of recovery Clinical Stress Symptoms: General Fatigue, Dyspnea Exercise capacity: 1.92 METs Rate Pressure Product: [id number] Stress ECG Conclusion 1. Resting EKG showed voltage for left ventricular hypertrophy, mild diffuse ST depression 2. Patient underwent testing using a combination of low-level exercise and pharmacologic stress with regadenoson 3. Peak heart rate achieved was 68% of predicted for age 4. The electrocardiographic portion of the test showed an additional [address] depression in the inf erior and anterolateral leads 5. See MPI report Stress Test Summary STAGE HR BP SpO2 Symptoms NOTES Supine 62 132/62 100% Standing 63 134/54 99% 1 min post Lexiscan injection 96 130/52 99% Mild/moderate SOB 3 min post Lexiscan injection 85 102/42 100% SOB resolved 6 min post Lexiscan injection 69 108/52 100% 9 min post Lexiscan injection 67 110/58 100% Pharmacologic stress was paired with low level exercise at 1.2mph and 0% grade. Pt tolerated exercise and pharmacologic stress well. MPI Conclusion Myocardial perfusion is normal. There is no ischemia or evidence of prior infarction EF is 54%, wall motion is normal Radiologist Interpretation Radiologist Interpretation by: Freeman Morley MD Interpretation Date/Time: 07/08/2022 16:39:07
[2022-07-08] MEDS: Regadenoson 0.4 MG/5 ML SYR IVP (12:50)
== END ==
PROVIDERS: PCP Family Medicine; Visit Provider Family Medicine
DX: E11.9 Type 2 diabetes mellitus without complications (principal); I20.9 Angina pectoris, unspecified; Z86.73 Personal history of transient ischemic attack (TIA), and cerebral infarction without residual deficits
CPT/HCPCS: 78452; 93016; 93018; 93017; J2785